=== PATIENT | female | born 1950 | race Caucasian/White ===

== ENCOUNTER 2018-11-06 02:27 | Inpatient (IN) | payer OTHER ==
--- NOTE | 2018-11-06 03:52 | PDOC ---
History of Present Illness - General Chief Complaint: Injury Stated Complaint: FALL Time Seen by Provider: 11/06/18 03:09 History Source: Patient Exam Limitations: No Limitations - History of Present Illness Initial Comments: 11/06/18 04:16 68 yo F with no past medical history presents to the emergency department s/p fall with LOC. It was difficult to arouse the patient as she kept falling back asleep. She was alert and oriented x1 to herself. She states she fell outside of [facility] after tripping on the items she was carrying. She endorses carrying her clothes and personal belongings (she is homeless). She endorses losing consciousness. Endorses pain in her chest, occipital head, neck, and bilateral pelvis. Denies the following: fever, chills, SOB, nausea, vomiting, abdominal pain, dysuria, hematuria, and diarrhea. Denies drug use and alcohol use. History limited given patient's inconsistency of answers and nodding off. Allergies: NKDA Past History - Past Medical History Allergies/Adverse Reactions: Allergies Allergy/AdvReac Type Severity Reaction Status Date / Time No Known Allergies Allergy Verified 11/06/18 03:56 Home Medications: Ambulatory Orders Insulin Sliding Scale [Novolog Vial Sliding Scale -] 1 vial SQ TIDAC units 04/29 Donepezil HCl [Aricept -] 5 mg PO DAILY tablet 11/13/18 Insulin (Levemir) [Levemir Vial] 10 units SQ AM units 11/13/18 - Suicide/Smoking/Psychosocial Hx Smoking History: Never smoked Have you smoked in the past 12 months: No Information on smoking cessation initiated: No Hx Alcohol Use: No Drug/Substance Use Hx: No Review of Systems - Review of Systems Able to Perform ROS?: No (AMS; not reliable ROS) *Physical Exam - Vital Signs Last Vital Signs Temp Pulse Resp BP Pulse Ox 98.0 F 90 18 153/91 99 11/06/18 02:37 11/06/18 02:37 11/06/18 02:37 11/06/18 02:37 11/06/18 02:37 - Physical Exam General Appearance: Yes: Nourished, Disheveled, Obese, Other (lethargic, but arousable). No: Appropriately Dressed HEENT: positive: EOMI, CHRISTOS, Pharynx Normal. negative: Normal Voice, Pale Conjunctivae, Scleral Icterus (R), Scleral Icterus (L), Pharyngeal Erythema, Tonsillar Exudate, Tonsillar Erythema, Nasal Congestion, Rhinorrhea Neck: positive: Trachea midline, Supple. negative: Tender, Lymphadenopathy (R) , Lymphadenopathy (L), Tender lateral, Tender midline Respiratory/Chest: positive: Lungs Clear, Normal Breath Sounds. negative: Chest Tender, Respiratory Distress, Accessory Muscle Use, Crackles, Rales, Rhonchi, Stridor, Wheezing Cardiovascular: positive: Regular Rhythm, Regular Rate, S1, S2. negative: Systolic Murmur Gastrointestinal/Abdominal: positive: Normal Bowel Sounds, Flat, Soft. negative : Tender Lymphatic: negative: Adenopathy Musculoskeletal: positive: Normal Inspection. negative: CVA Tenderness, Vertebral Tenderness Extremity: positive: Normal Capillary Refill, Normal Inspection, Normal Range of Motion. negative: Tender Integumentary: positive: Normal Color, Dry, Warm Neurologic: positive: Alert (minimally), Respond to painful stimul. 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 NML intact (unable to assess due to patient's lack of cooperativity) , Fully Oriented (unable to assess), Normal Mood/Affect ED Treatment Course - LABORATORY CBC & Chemistry Diagram: 11/06/18 03:51 11/07/18 06:00 - RADIOLOGY Radiology Studies Ordered: Category Date Time Status CERVICAL SPINE CT W/O CONTR [CT] Stat CT Scan 11/06/18 03:[address] W/O CONTRAST [CT] Stat CT Scan 11/06/18 03:[address] WITHOUT CONTRAST [CT] Stat CT Scan 11/06/18 03:48 Ordered CHEST X-RAY PORTABLE* [RAD] Stat Radiology 11/06/18 03:48 Ordered HIP & PELVIS-LEFT [RAD] Stat Radiology 11/06/18 03:48 Ordered HIP & PELVIS-RIGHT [RAD] Stat Radiology 11/06/18 03:48 Ordered Medical Decision Making - Medical Decision Making 68 yo F with no past medical history presents to the emergency department s/p fall with LOC. It was difficult to arouse the patient as she kept falling back asleep. Initial vitals: Initial Vital Signs Temp Pulse Resp BP Pulse Ox 98.0 F 90 18 153/91 99 11/06/18 02:37 11/06/18 02:37 11/06/18 02:37 11/06/18 02:37 11/06/18 02:37 Work up: ddx: AMS s/p fall. concerns for intracranial pathology. will also assess metabolic, hgn, infectious, and cardiac etiologies. Laboratory Tests 11/06/18 11/06/18 11/06/18 03:51 03:51 03:51 WBC 6.8 RBC 4.07 Hgb 13.2 Hct 38.0 MCV 93.3 MCH 32.3 MCHC 34.6 RDW 12.6 Plt Count 257 MPV 8.0 Absolute Neuts (auto) 4.5 Neutrophils % 66.1 Lymphocytes % 21.8 Monocytes % 7.9 Eosinophils % 3.4 Basophils % 0.8 Nucleated RBC % 0 PT with INR 12.10 INR 1.03 Sodium 142 Potassium 3.4 L Chloride 107 Carbon Dioxide 28 Anion Gap 7 L BUN 13.1 Creatinine 0.7 Est GFR (CKD-EPI)AfAm 101.74 Est GFR (CKD-EPI)NonAf 87.78 Random Glucose 220 H Calcium 8.9 Total Bilirubin 0.5 AST 26 ALT 27 Alkaline Phosphatase 140 H Troponin I Total Protein 7.1 Albumin 3.7 Urine Color Urine Appearance Urine pH Ur Specific Sarah Ann Urine Protein Urine Glucose (UA) Urine Ketones Urine Blood Urine Nitrite Urine Bilirubin Urine Urobilinogen Ur Leukocyte Esterase Opiates Screen Methadone Screen Barbiturate Screen Phencyclidine Screen Ur Amphetamines Screen MDMA (Ecstasy) Screen Benzodiazepines Screen Cocaine Screen U Marijuana (THC) Screen Alcohol, Quantitative < 3.0 Blood Type Antibody Screen 11/06/18 11/06/18 11/06/18 03:51 03:58 05:46 WBC RBC Hgb Hct MCV MCH MCHC RDW Plt Count MPV Absolute Neuts (auto) Neutrophils % Lymphocytes % Monocytes % Eosinophils % Basophils % Nucleated RBC % PT with INR INR Sodium Potassium Chloride Carbon Dioxide Anion Gap BUN Creatinine Est GFR (CKD-EPI)AfAm Est GFR (CKD-EPI)NonAf Random Glucose Calcium Total Bilirubin AST ALT Alkaline Phosphatase Troponin I < 0.02 Total Protein Albumin Urine Color Yellow Urine Appearance Clear Urine pH 6.0 Ur Specific Sarah Ann 1.034 Urine Protein Negative Urine Glucose (UA) 3+ H Urine Ketones Trace H Urine Blood Negative Urine Nitrite Negative Urine Bilirubin Negative Urine Urobilinogen 1.0 Ur Leukocyte Esterase Negative Opiates Screen Methadone Screen Barbiturate Screen Phencyclidine Screen Ur Amphetamines Screen MDMA (Ecstasy) Screen Benzodiazepines Screen Cocaine Screen U Marijuana (THC) Screen Alcohol, Quantitative Blood Type O POSITIVE Antibody Screen Negative 11/06/18 11/06/18 07:26 07:45 WBC RBC Hgb Hct MCV MCH MCHC RDW Plt Count MPV Absolute Neuts (auto) Neutrophils % Lymphocytes % Monocytes % Eosinophils % Basophils % Nucleated RBC % PT with INR INR Sodium Potassium Chloride Carbon Dioxide Anion Gap BUN Creatinine Est GFR (CKD-EPI)AfAm Est GFR (CKD-EPI)NonAf Random Glucose Calcium Total Bilirubin AST ALT Alkaline Phosphatase Troponin I Total Protein Albumin Urine Color Urine Appearance Urine pH Ur Specific Sarah Ann Urine Protein Urine Glucose (UA) Urine Ketones Urine Blood Urine Nitrite Urine Bilirubin Urine Urobilinogen Ur Leukocyte Esterase Opiates Screen Negative Methadone Screen Negative Barbiturate Screen Negative Phencyclidine Screen Negative Ur Amphetamines Screen Negative MDMA (Ecstasy) Screen Negative Benzodiazepines Screen Negative Cocaine Screen Negative U Marijuana (THC) Screen Negative Alcohol, Quantitative Blood Type O POSITIVE Antibody Screen potassium low. no tropinin elevation. alcohol <3.0. EKG shows NSR without ST elevation or depression without arrhythmia. 11/06/18 06:14 CT head: "There is mild increased density of the posterior interhemispheric fissure at the level of the occipital lobes, measures 2?3 millimeters and is suggestive of an acute subdural hematoma. 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 Will monitor at least for observation. No intervention at this time. Requests urine tox. Urine drug screen negative Signed out patient to day team, specifically Dr. Cardenas for impending admission. *DC/Admit/Observation/Transfer Diagnosis at time of Disposition: Altered mental status, unspecified - Referrals - Patient Instructions - Post Discharge Activity
[2018-11-06 04:05] LABS: BASO % 0.8 % (0-2.0); EOS % 3.4 % (0-4.5); HEMOGLOBIN 13.2 GM/dL (10.7-15.3); LYMPH % 21.8 % (8-40); MCH 32.3 pg (25.7-33.7); MCHC 34.6 g/dl (32.0-36.0); MEAN CELL VOLUME 93.3 fl (80-96); MONO % 7.9 % (3.8-10.2); NEUT % 66.1 % (42.8-82.8); PLATELET COUNT 257 K/MM3 (134-434); RBC 4.07 M/mm3 (3.60-5.2); RDW 12.6 % (11.6-15.6); WHITE BLOOD COUNT 6.8 K/mm3 (4.0-10.0)
[2018-11-06 04:18] LABS: INR 1.03 (0.83-1.09); PROTHROMBIN TIME (PATIENT) 12.1 SEC (9.7-13.0)
[2018-11-06 04:38] LABS: ALBUMIN 3.7 g/dl (3.4-5.0); ALK PHOS 140 U/L (45-117); ANION GAP 7 MMOL/L (8-16); BILIRUBIN,TOTAL 0.5 mg/dL (0.2-1); BLOOD UREA NITROGEN 13.1 mg/dL (7-18); CALCIUM 8.9 mg/dL (8.5-10.1); CHLORIDE 107 mmol/L (98-107); CO2 28 mmol/L (21-32); CREATININE 0.7 mg/dL (0.55-1.3); GLUCOSE,RANDOM 220 mg/dL (74-106); POTASSIUM 3.4 mmol/L (3.5-5.1); SGOT/AST 26 U/L (15-37); SGPT/ALT 27 U/L (13-61); SODIUM 142 mmol/L (136-145); TOT PROT 7.1 g/dl (6.4-8.2)
--- NOTE | 2018-11-06 05:15 | PDOC ---
Attending Attestation - Resident Resident Name: Bryan Lopez - ED Attending Attestation I have performed the following: I have examined & evaluated the patient, The case was reviewed & discussed with the resident, I agree w/resident's findings & plan - HPI HPI: 11/06/18 05:24 Pt comes in found on the ground. States that she is homeless; states that she has family members but she doesn't recall their phone #s. She is a poor historian. She has no other complaints. Head neck and facial bone CT will be obtained. - Physicial Exam PE: 11/06/18 05:25 Agree with resident exam - Medical Decision Making 11/06/18 05:25 Pt has poor hygeine, consistent with her homelessness. She has no abd pain and no flank pain. She is awake and arousable. She has no fever and no chills. She has no flank pain and no suprapubic pain. 11/06/18 06:05 Pt will require admission for 24 hrs for obs after syncope and found down on the ground. May require longer admission for suggested acute subdural. 11/06/18 06:10 Patient Name: DONNA ROLLINS THIS IS A PRELIMINARY REPORT FROM IMAGING EMERGENCY RESPONSE OFFICER DATE OF SERVICE: 2018-11-06 04:14:27 IMAGES: [id number] EXAM: CT HEAD WITHOUT CONTRAST HISTORY: Fall. COMPARISON: None. FINDINGS: 1. There is mild increased density of the posterior interhemispheric fissure at the level of the occipital lobes, measures 2?3 millimeters and is suggestive of an acute subdural hematoma. No significant mass effect. 2. No other evidence for intracranial bleed or depressed skull fracture. 3. Mild diffuse cerebral volume loss and age indeterminate lacunar infarct of the right posterior internal capsule. 4. Please see separate CT report of the facial bones of the same day. Patient Name: DONNA ROLLINS THIS IS A PRELIMINARY REPORT FROM [facility]AGING EMERGENCY RESPONSE OFFICER DATE OF SERVICE: 2018-11-06 04:08:32 IMAGES: [id number] EXAM: CT CERVICAL SPINE WITHOUT INTRAVENOUS CONTRAST. HISTORY: Fall. COMPARISON: None. FINDINGS: 1. No acute fracture or acute subluxation. Vertebral body heights and alignment are maintained. There is no significant prevertebral soft tissue thickening. 11/06/18 06:12 Patient Name: DONNA ROLLINS THIS IS A PRELIMINARY REPORT FROM [facility]AGING EMERGENCY RESPONSE OFFICER DATE OF SERVICE: 2018-11-06 04:18:07 IMAGES: [id number] EXAM: CT FACIAL BONES WITHOUT INTRAVENOUS CONTRAST. HISTORY: Fall. COMPARISON: None. FINDINGS: 1. There is an age-indeterminate mild fracture deformity of the left nasal bone , however may be chronic. Recommend clinical correlation. 2. Otherwise, no acute fracture or acute dislocation demonstrated. 3. The orbital domingo are intact. The orbital contents are preserved. No post- septal process seen. 4. The paranasal sinuses are well formed and aerated without fluid level. 5. Dental disease.
[2018-11-06] MEDS ORDERED: SODIUM CHLORIDE 0.9% 500 ML INFUS.BAG IV ONE (05:26)
--- NOTE | 2018-11-06 07:11 | PDOC ---
*Physical Exam - Vital Signs Last Vital Signs Temp Pulse Resp BP Pulse Ox 98.0 F 86 16 147/88 99 11/06/18 02:37 11/06/18 06:01 11/06/18 06:01 11/06/18 06:01 11/06/18 06:01 - Physical Exam Comments: MDM: *Reviewed vital signs, nursing notes, and prior visit documentation (if available). Received sign out from resident Dr. Lopez. In short, pt is a 68 f/o female found down by EMS. Presenting with AMS. [facility] Head CT revealed possible subdural hematoma. Neurosurgery, Dr. Gan, contacted via telephone. Requested UDS. Will evaluate today. Awaiting formal radiology report. Telephone discussion with resident Dr. Amaya. Verbally appraised of the pts HPI, ED course, and current plan of management. Will admit pt to med/surg for attending Dr. Oneal. Prateek Cardenas M.D., PGY2 Emergency Medicine Resident General Appearance: No: Apparent Distress Respiratory/Chest: negative: Respiratory Distress Neurologic: positive: Alert ED Treatment Course - LABORATORY CBC & Chemistry Diagram: 11/06/18 03:51 11/06/18 03:51 - ADDITIONAL ORDERS Additional order review: Laboratory Results 11/06/18 11/06/18 11/06/18 03:58 03:51 03:51 PT with INR 12.10 INR 1.03 Sodium Potassium Chloride Carbon Dioxide Anion Gap BUN Creatinine Est GFR (CKD-EPI)AfAm Est GFR (CKD-EPI)NonAf Random Glucose Calcium Total Bilirubin AST ALT Alkaline Phosphatase Troponin I < 0.02 Total Protein Albumin Alcohol, Quantitative Blood Type O POSITIVE Antibody Screen Negative 11/06/18 03:51 PT with INR INR Sodium 142 Potassium 3.4 L Chloride 107 Carbon Dioxide 28 Anion Gap 7 L BUN 13.1 Creatinine 0.7 Est GFR (CKD-EPI)AfAm 101.74 Est GFR (CKD-EPI)NonAf 87.78 Random Glucose 220 H Calcium 8.9 Total Bilirubin 0.5 AST 26 ALT 27 Alkaline Phosphatase 140 H Troponin I Total Protein 7.1 Albumin 3.7 Alcohol, Quantitative < 3.0 Blood Type Antibody Screen 11/06/18 03:51 RBC 4.07 MCV 93.3 MCHC 34.6 RDW 12.6 MPV 8.0 Neutrophils % 66.1 Lymphocytes % 21.8 Monocytes % 7.9 Eosinophils % 3.4 Basophils % 0.8 - Medications Given in the ED: ED Medications Discontinued Medications Generic Name Dose Route Start Last Admin Trade Name Freq PRN Reason Stop Dose Admin Sodium Chloride 1,000 ml 11/06/18 05:26 11/06/18 05:36 Normal Saline - IV 11/06/18 05:27 1,000 ml ONCE ONE Administration *DC/Admit/Observation/Transfer Diagnosis at time of Disposition: Altered mental status, unspecified Qualifiers: Altered mental status type: unspecified Qualified Code(s): R41.82 - Altered mental status, unspecified - Discharge Dispostion Condition at time of disposition: Stable Decision to Admit order: Yes - Referrals - Patient Instructions - Post Discharge Activity
[2018-11-06 07:35] LABS: URINE APPEARANCE CLEAR; URINE BILIRUBIN NEGATIVE (NEGATIVE); URINE COLOR YELLOW; URINE GLUCOSE (UA) 3+ (NEGATIVE); URINE KETONE TRACE (NEGATIVE); URINE LEUK ESTERASE NEGATIVE (NEGATIVE); URINE NITRITE NEGATIVE (NEGATIVE); URINE PROTEIN NEGATIVE (NEGATIVE)
--- NOTE | 2018-11-06 08:26 | PN ---
Progress Note (short form) - Note Progress Note: NEUROSURGERY Pt examined Chart reviewed CT reviewed No reported PMH. s/p fall with LOC. She states she fell outside of [facility] after tripping on the items she was carrying. c/o pain in her chest, occipital head, neck, and bilateral pelvis. Denies F/C, N/V, diplopia. Denies drug use and alcohol use. PE: AF, VSS HEENT- nasion abrasion; Neck- supple, mild basal tenderness; Cor- RR; Lungs- CTA B; Abd- benign, + BS; Ext- no sign of DVT Slightly sleepy, arousable, following commands CN- non-focal; Motor- at least 4/5 b UE/LE without drift; Sensation- intact LT; DTR- 1+ Head CT- hyperostosis interna, no fx, no acute bleed, posterior falx thickened/ calcified C spine CT- no fx, mild C5-6 DDD with spondylosis, no subluxation INR 1.03; glucose 220 No acute intracranial bleed s/p fall with concussion Check tox screen No neurosurgical issue/intervention Medical management accordingly
[2018-11-06 08:50] LABS: COCAINE, UR NEGATIVE ng/ml (CUTOFF=300); METHADONE, UR NEGATIVE ng/ml (CUTOFF=300); OPIATES, URI NEGATIVE ng/ml (CUTOFF=300); PHENCYCLIDINE,URINE NEGATIVE ng/ml (CUTOFF=25); URINE AMPHETAMINES NEGATIVE ng/ml (CUTOFF=500); URINE BARBITURATES NEGATIVE ng/ml (CUTOFF=200); URINE BENZODIAZEPINES NEGATIVE ng/ml (CUTOFF=200)
[2018-11-06] MEDS ORDERED: ENOXAPARIN NA (PORCINE) 40 MG/0.4 ML DISP.SYRIN SQ ONE (09:16)
[2018-11-06] MEDS: ENOXAPARIN NA (PORCINE) 40 MG/0.4 ML DISP.SYRIN SQ SCH (09:23)
[2018-11-06 10:59] VITALS: BMI 26.0
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
[2018-11-06] MEDS ORDERED: POTASSIUM CHLORIDE TABS 20 MEQ TABLET.ER (FP) PO ONE (16:30)
[2018-11-06] MEDS ORDERED: SODIUM CHLORIDE 1,000 ML IV SCH (16:45)
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
[2018-11-07 08:18] LABS: BLOOD UREA NITROGEN 8.1 mg/dL (7-18); CALCIUM 8.5 mg/dL (8.5-10.1); CREATININE 0.6 mg/dL (0.55-1.3); POTASSIUM 3.8 mmol/L (3.5-5.1)
--- NOTE | 2018-11-07 09:31 | EKG ---
Test Reason : Blood Pressure : / mmHG Vent. Rate : 074 BPM Atrial Rate : 074 BPM P-R Int : 164 ms QRS Dur : 082 ms QT Int : 404 ms P-R-T Axes : -11 023 025 degrees QTc Int : 448 ms NORMAL SINUS RHYTHM NORMAL ECG NO PREVIOUS ECGS AVAILABLE Confirmed by Swapnil Krause MD ([id number]) on 11/07/2018 9:30:43 AM Referred By: Confirmed By:wSapnil Krause MD
[2018-11-07] MEDS: ENOXAPARIN NA (PORCINE) 40 MG/0.4 ML DISP.SYRIN SQ SCH (09:41)
[2018-11-07] MEDS ORDERED: INSULIN (NOVOLOG) ASPART 100 UNITS/ML 10ML VIAL ONE (12:57)
--- NOTE | 2018-11-07 15:23 | CONSULT ---
Admitting History and Physical - Primary Care Physician PCP: Patricia Oneal - Admission History of Present Illness: 68 Citizen Of The [place]-speaking female w/ unknown pmhx presented to the ED after an unwitnessed fall. 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 She reports being homeless 5 months.She is verbal. Impaired recall, educated on staying in bed. Attempts to get OOB unattended, removes IV. Oriented to hospital not time. History Source: Medical Record Limitations to Obtaining History: Clinical Condition - Past Medical History ...: No - Smoking History Smoking history: Never smoked Have you smoked in the past 12 months: No - Alcohol/Substance Use Hx Alcohol Use: No History - Admission Reason For Visit: AMS - Diagnostics X-ray: Report Reviewed CT Scan: Report Reviewed - General Mental Status: Awake and Alert, Able to Follow Commands, Forgetful, Vague Attention: Intact Ability to Follow Directions: Good Head/Neck Control: WFL - Hearing Hearing: Normal Speech Evaluation - Communication Primary Language: FAROESE Secondary Language: LAO Communication: Yes: Within Normal Limits Oral Expression Ability: Yes: No Impairment - Speech Production Able to Make Needs Known: Yes: WNL Intelligibility: Yes: WNL - Speech Characteristics Voice Loudness: Normal Voice Pitch: Yes: Normal Voice Phonatory-based Quality: Yes: Normal Speech Pattern: Normal Speech Clarity: < 100% Nasal Resonance: Normal Articulation: Yes: Precise Rate of Speech: Intact - Language/Auditory Comprehension Follows: Yes: 1 Stage Simple Commands - Language/Verbal Expression Able to Respond to Simple Queries: Yes: WNL Able to Communicate Wants and Needs: Yes: WNL Functional Communication Status: Yes: WNL - Swallow Evaluation/Bedside Assessment Current Nutritional Intake: Regular, Thin Liquids Oral Secretions: Yes: WFL Dentition: Yes: Adequate Facial Symmetry at Rest: Symmetrical Facial Symmetry on Retraction: Symmetrical Facial Movement: Controlled Sensation: Normal Against Resistance Opening: Normal Against Resistance Closing: Normal Pucker Lips: Normal Lingual Movement: Normal, Deviates Right Lingual Speed of Movement: Normal Lingual Movement Strgth Against Opposition: Normal Lingual Movement Characteristics: Normal Laryngeal Elevation: WFL Laryngeal Movement: Able to Palpate Rate of Intake: WFL Bolus Size: WFL Labial Seal: WFL Chewing: WFL Oral Prep Time: WFL A-P Transit: WFL Pocketing: None Timing of Swallow: WFL Coughing/Throat Clear: No Change in Voice: No Recommendations - Speech Evaluation, Impression/Plan Impression: Verbal. Swallowing intact. Memory deficits? - Dysphagia Impressions/Plan Swallowing Skills: WF Dysphagia Impressions: No Impairment *Silent aspiration: cannot be R/O at bedside - Recommendations Diet Consistency: Regular Medication Administration: Whole with water Liquids: Thin Liquids
--- NOTE | 2018-11-07 15:38 | CON.NEURO ---
Consult - Past Medical History ...: No - Alcohol/Substance Use Hx Alcohol Use: No - Smoking History Smoking history: Never smoked Have you smoked in the past 12 months: No Home Medications - Allergies Allergies/Adverse Reactions: Allergies Allergy/AdvReac Type Severity Reaction Status Date / Time No Known Allergies Allergy Verified 11/06/18 03:56 - Home Medications Home Medications: Ambulatory Orders NK [No Known Home Medication] 11/06/18 Physical Exam-Neuro Vital Signs: Vital Signs Temperature 99.3 F 11/07/18 13:19 Pulse Rate 91 H 11/07/18 13:19 Respiratory Rate 18 11/07/18 13:19 Blood Pressure 127/72 11/07/18 13:19 O2 Sat by Pulse Oximetry (%) 97 11/07/18 09:00 Labs: CBC, BMP 11/06/18 03:51 11/07/18 06:00 INR, PTT INR 1.03 (0.83-1.09) 11/06/18 03:51 Assessment/Plan cc Confusion HPI 68 year old female , orginally from [facility] . 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 She has fall and been confused . She is homeless for five months. Patient has ct head is [facility]. She could not recall, where she lives. Patient have mild headhace. She denies any other focal neurological symptoms. Patient denies any fever or seizure like activity. PAST MEDICAL HISTORY: Unknown PAST SURGICAL HISTORY: Unknown Social History: Unable to obtain Family History: Unable to obtain. Allergies No Known Allergies Allergy (Verified 11/06/18 03:56) HOME MEDICATIONS: Home Medications Medication Instructions Recorded NK [No Known Home Medication] 11/06/18 SUMAYA BEASLEY reviewed in chart NEUROLOGICAL EXAMINATION Alert oriented x 1, knows she is at [facility], and could tell her name. neck supple, afebrile passed swallow test eomi, pupils reactive no face asymmetry moving all ext ct head is normal Assessment/Plan Confusional state, I suspect she suffers from Dementia and got worse due to recent hospitalization. Unlikley to be concussion injury. Given she has fallen, I suggest to repeat ct head for any subdural hematoma. Plan : repeat ct head b12,folate tsh - follow up outpatient no evidence of meningitis, stroke or status epilepticus Thanking you so much Zac Hendrickson MD
--- NOTE | 2018-11-07 16:10 | PN ---
Physical Exam: SUBJECTIVE: Patient seen and examined at the bedside. AOX1 today, mental status improved more alert today. OBJECTIVE: Vital Signs Period Temp Pulse Resp BP Sys/Garibay Pulse Ox Last 24 Hr 97.7 F-99.3 F 20-91 18-95 127-146/71-83 96-97 GENERAL: The patient is awake, slightly more alert, responsive., AO X1 HEAD: BRUISE over her nose and some hyperpigmentation on face. NECK: supple. LUNGS: Breath sounds equal, clear to auscultation bilaterally, no wheezes, no crackles, no accessory muscle use. HEART: Regular rate and rhythm, S1, S2 without murmur, rub or gallop. ABDOMEN: Soft, nontender, nondistended, no guarding, no rebound. EXTREMITIES: 2+ pulses, bruises on b/l LE's, warm, well-perfused, no edema. PSYCH: difficult to assess awaiting psych eval SKIN: Warm, dry, senile lentigo on her hands b/l, hyperpigmentation on her face and eczematous rash on her abdomen. Laboratory Results - last 24 hr 11/06/18 11/07/18 11/07/18 20:46 05:34 06:00 Sodium 140 Potassium 3.8 Chloride 107 Carbon Dioxide 26 Anion Gap 7 L BUN 8.1 Creatinine 0.6 Est GFR (CKD-EPI)AfAm 107.03 Est GFR (CKD-EPI)NonAf 92.35 POC Glucometer 238 184 Random Glucose 167 H Calcium 8.5 11/07/18 11/07/18 08:46 12:52 Sodium Potassium Chloride Carbon Dioxide Anion Gap BUN Creatinine Est GFR (CKD-EPI)AfAm Est GFR (CKD-EPI)NonAf POC Glucometer 190 224 Random Glucose Calcium Active Medications Generic Name Dose Route Start Last Admin Trade Name Freq PRN Reason Stop Dose Admin Enoxaparin Sodium 40 mg 11/06/18 10:00 11/07/18 09:41 Lovenox - SQ 40 mg DAILY EL Administration Sodium Chloride 1,000 mls @ 75 mls/hr 11/06/18 16:45 11/06/18 18:44 Normal Saline - IV 75 mls/hr ASDIR EL Administration ASSESSMENT/PLAN: IMAGING: * Head CT: neg * Cervical spine CT: No acute fx, compression deformity, subluxation. C5-C6 loss of of disc space height. Mild anterior spondylosis. * CT facial bones: Chronic L nasal fx. No evid of acute fx, opacification of the paranasal sinuses, mastoid air cells or middle ear. * R hip xray: No acute pathology. 68 y/o Serbian-speaking female w/ DM, HTN pmhx who presented to the ED after an unwitnessed fall. #Unwitnessed Mechanical Fall PT eval shows she can ambulate with assistance around 200 ft. #? Concussion -Head CT neg - Neuro consult (Dr. Crystal): pt is in a confusional state, doubts concussion , thinks she suffers from dementia but worsened during this admission. Repeat CT scan to r/o a subdural hematoma and do B12, TSH, Folate to w/u the dementia. - Psych consulted- spoke to Dr. Lopez, he will see him tn #Hypokalemia -replete PRN #Prophylaxis -Lovenox 40SQ #FEN -PO hydration -recheck lytes in AM -Sodium-controlled diet Dispo: pending Psych eval will have safe d/c home tm. Visit type - Emergency Visit Emergency Visit: Yes ED Registration Date: 11/06/18 Care time: The patient presented to the Emergency Department on the above date and was hospitalized for further evaluation of their emergent condition. - New Patient This patient is new to me today: No - Critical Care Critical Care patient: No - Discharge Referral Referred to [facility] Med [facility] No ATTENDING PHYSICIAN STATEMENT I saw and evaluated the patient. I reviewed the resident's note and discussed the case with the resident. I agree with the resident's findings and plan as documented. SUBJECTIVE: OBJECTIVE: ASSESSMENT AND PLAN:
--- NOTE | 2018-11-07 17:28 | ECHO ---
Name: KULDEEP ROLLINS Exam:Adult Echocardiogram Study Date: 11/07/2018 01:32 PM Age: 68 yrs Reason For Study: SYNCOPE Height: 60 in Weight: 133 lb BSA: 1.6 m2 Left Ventricle Mild LVH with normal LV Function. The estimated EF is 55%. Abnormal diastolic relaxation. Right Ventricle The right ventricle is normal in size and function. Atria Normal left and right atrial size and function. Mitral Valve The mitral valve is grossly normal. There is mild mitral regurgitation. Aortic Valve The aortic valve is normal in structure and function. Pulmonic Valve The pulmonic valve is not well seen, but is grossly normal. Great Vessels The aortic root is not well visualized. Pericardium/Pleura There is no pericardial effusion. Interpretation Summary Mild LVH with normal LV Function. The estimated EF is 55%. Abnormal diastolic relaxation. The right ventricle is normal in size and function. Normal left and right atrial size and function. There is mild mitral regurgitation. The aortic valve is normal in structure and function. MD Lito Jacobs 11/07/2018 05:28 PM
--- NOTE | 2018-11-07 18:22 | PN ---
Teaching Attending Note Name of Resident: Michael Bone ATTENDING PHYSICIAN STATEMENT I saw and evaluated the patient. I reviewed the resident's note and discussed the case with the resident. I agree with the resident's findings and plan as documented. SUBJECTIVE: Denies any pain, or SOB. feels better today. she confirms she had diabetes and HTN. still can give limited hx OBJECTIVE: NAD. awake, mostly cooperative with exam. EOMI, no facial droop. HEENT: MMM. CV: RRR, no MRG lungs: CTAB Abd: soft, NT, ND , NL BS. Ext : No edema or erythema. Neuro: did not cooperate ASSESSMENT AND PLAN: 68 y/o lady with unknown PMH who presented after a fall. 1- Mechanical fall. 2- Possible dementia. 3- HTN 4- dementia plan: - appreciate Dr. Hendrickson help.possible dementia - consut psyh - start SSI - monitor BP . - repeat CT of head - PT eval - can't reach any family d/w Administration. Will decide about best dispo plan for her
--- NOTE | 2018-11-07 19:11 | CON.PSY ---
Psychiatry Consult Chief Complaint: 68 Joselyn old female seen for Psych eval. Hasw been confused and homeless for t5he past 6 months. staff report that she is verry fortgetful and has defficulty following any instructions. Symptoms: reports: Impaired Concentration, Memory Impairment, Anxiety - Previous Psychiatric Treatment Outpatient: None Inpatient: None - Previous Substance Abuse Treatment Outpatient: None Inpatient: None - Current Medications Current Medications: Active Medications Enoxaparin Sodium (Lovenox -) [address] [facility] Last Admin: 11/07/18 09:41 Dose: 40 mg Insulin Aspart (Novolog Vial Sliding Scale -) [address] [facility]; Protocol - Allergies Allergies: Allergies Allergy/AdvReac Type Severity Reaction Status Date / Time No Known Allergies Allergy Verified 11/06/18 03:56 - Current Living Status Usual Living Arrangement: Alone - Current Mental Status Evaluation Appearance: Disheveled Attitude: Guarded - Affect Affect: Constrictive - Mood Mood: Anxious - Speech/Language Expressive: Delayed - Psychomotor Activity Psychomotor Activity: Slowed - Thought Process Thought Process: Circumstantial - Thought Content Hallucinations: Absent Delusions: Absent - Self Perception Self Perception: No Impairment - Cognition Attention: Alert Memory, Short Term: 1/3 Memory, Remote with Promptin/3 - Concentration Serial Sevens Intact: No Simple Calculations Intact: No - Abstraction Proverb Interpretation: Impaired Judgement: Moderately Impaired - Insight Insight: Impaired - Impulse Control Impulse Control: Minimally Impaired - Suicidal Ideation Suicidal Ideation: No - Homicidal Ideation Homicidal Ideation: No Assessment/Plan 1) Patient lacks functional capacity to make any decisions at this time.
--- NOTE | 2018-11-07 22:08 | PN ---
Progress Note (short form) - Note Progress Note: NEUROSURGERY Seen earlier this am Denies H/A, N/V, diplopia. Denies drug use and alcohol use. PE: AF, VSS HEENT- nasion abrasion; Neck- supple, mild basal tenderness; Cor- RR; Lungs- CTA B; Abd- benign, + BS; Ext- no sign of DVT Awake, alert, following commands CN- non-focal; Motor- at least 4/5 b UE/LE without drift; Sensation- intact LT; DTR- 1+ tx screen negative Head CT- hyperostosis interna, no fx, no acute bleed, posterior falx thickened/ calcified C spine CT- no fx, mild C5-6 DDD with spondylosis, no subluxation No acute intracranial bleed s/p fall with concussion Check tox screen No neurosurgical intervention indicated
[2018-11-08] MEDS ORDERED: INSULIN (NOVOLOG) ASPART 100 UNITS/ML 10ML VIAL ONE ×3 (06:58→16:20)
[2018-11-08] MEDS: INSULIN SLIDING SCALE (NOVOLOG) 1 VIAL SQ SCH ×3 (07:00→16:22)
[2018-11-08] MEDS: ENOXAPARIN NA (PORCINE) 40 MG/0.4 ML DISP.SYRIN SQ SCH (11:17)
--- NOTE | 2018-11-08 12:50 | PN ---
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 Pt lacks capacity per Psychiatry.
--- NOTE | 2018-11-08 14:46 | PN ---
Teaching Attending Note Name of Resident: Michael Bone ATTENDING PHYSICIAN STATEMENT I saw and evaluated the patient. I reviewed the resident's note and discussed the case with the resident. I agree with the resident's findings and plan as documented. SUBJECTIVE: Patient has no new complains, oriented x1 for the place , disoriented x2 OBJECTIVE: Vital Signs Temperature 98.7 F 11/08/18 13:25 Pulse Rate 91 H 11/08/18 13:25 Respiratory Rate 18 11/08/18 13:25 Blood Pressure 128/72 11/08/18 13:25 O2 Sat by Pulse Oximetry (%) 97 11/07/18 09:00 GENERAL: The patient is awake, alert, and fully oriented, in no acute distress. HEAD: Normal with no signs of trauma. EYES: PERRL, extraocular movements intact, sclera anicteric, conjunctiva clear. ENT: Ears normal, oropharynx clear without exudates, moist mucous membranes. NECK: Trachea midline, full range of motion, supple. LUNGS: Breath sounds equal, clear to auscultation bilaterally, no wheezes, no crackles, no accessory muscle use. HEART: Regular rate and rhythm, S1, S2 without murmur, rub or gallop. ABDOMEN: Soft, nontender, nondistended, normoactive bowel sounds, no guarding, no rebound, no hepatosplenomegaly, no masses. EXTREMITIES: 2+ pulses, warm, well-perfused, no edema. NEUROLOGICAL: Cranial nerves II through XII grossly intact. Normal speech, gait not observed. PSYCH: Normal mood, normal affect. SKIN: Warm, dry, normal turgor, no rashes or lesions noted CBCD WBC 6.8 K/mm3 (4.0-10.0) 11/06/18 03:51 RBC 4.07 M/mm3 (3.60-5.2) 11/06/18 03:51 Hgb 13.2 GM/dL (10.7-15.3) 11/06/18 03:51 Hct 38.0 % (32.4-45.2) 11/06/18 03:51 MCV 93.3 fl (80-96) 11/06/18 03:51 MCHC 34.6 g/dl (32.0-36.0) 11/06/18 03:51 RDW 12.6 % (11.6-15.6) 11/06/18 03:51 Plt Count 257 K/MM3 (134-434) 11/06/18 03:51 MPV 8.0 fl (7.5-11.1) 11/06/18 03:51 CMP Sodium 140 mmol/L (136-145) 11/07/18 06:00 Potassium 3.8 mmol/L (3.5-5.1) 11/07/18 06:00 Chloride 107 mmol/L (98-107) 11/07/18 06:00 Carbon Dioxide 26 mmol/L (21-32) 11/07/18 06:00 Anion Gap 7 MMOL/L (8-16) L 11/07/18 06:00 BUN 8.1 mg/dL (7-18) 11/07/18 06:00 Creatinine 0.6 mg/dL (0.55-1.3) 11/07/18 06:00 Random Glucose 167 mg/dL (74-106) H 11/07/18 06:00 Calcium 8.5 mg/dL (8.5-10.1) 11/07/18 06:00 Total Bilirubin 0.5 mg/dL (0.2-1) 11/06/18 03:51 AST 26 U/L (15-37) 11/06/18 03:51 ALT 27 U/L (13-61) 11/06/18 03:51 Alkaline Phosphatase 140 U/L (45-117) H 11/06/18 03:51 Total Protein 7.1 g/dl (6.4-8.2) 11/06/18 03:51 Albumin 3.7 g/dl (3.4-5.0) 11/06/18 03:51 CARDIAC ENZYMES Troponin I < 0.02 ng/ml (0.00-0.05) 11/06/18 03:51 Current Medications Generic Name Dose Route Start Last Admin Trade Name Freq PRN Reason Stop Dose Admin Enoxaparin Sodium 40 mg 11/06/18 10:00 11/08/18 11:17 Lovenox - SQ 40 mg DAILY EL Administration Insulin Aspart 1 vial 11/08/18 07:00 11/08/18 11:17 Novolog Vial Sliding Scale - SQ 4 units TIDAC EL Administration Protocol Home Medications Medication Instructions Recorded NK [No Known Home Medication] 11/06/[address]- hyperostosis interna, no fx, no acute bleed, posterior falx thickened/ calcified, No acute intracranial bleed C spine CT- no fx, mild C5-6 DDD with spondylosis, no subluxation ASSESSMENT AND PLAN: Patient is a 68 y/o female with unknown PMHx who presented after a fall. # s/p Mechanical fall. s/p fall with concussion # moderate dementia. on the case # HTN : monitor BP . - PT eval - can't reach any family will check with Administration. Will decide about best dispo plan for her
--- NOTE | 2018-11-08 15:57 | PN ---
Physical Exam: SUBJECTIVE: Patient seen and examined at the bedside today. No acute events overnight. OBJECTIVE: Vital Signs Period Temp Pulse Resp BP Sys/Garibay Pulse Ox Last 24 Hr 98.4 F-99.4 F 82-91 18-19 128-142/71-73 95 GENERAL: The patient is awake, mental status improved since yesterday but memory impairment still present. HEAD: Normal with no signs of trauma. NECK: supple. LUNGS: Breath sounds equal, clear to auscultation bilaterally, no wheezes, no crackles, no accessory muscle use. HEART: Regular rate and rhythm, S1, S2 without murmur, rub or gallop. ABDOMEN: Soft, nontender, nondistended, no guarding, no rebound, no masses, eczema rash on midepigastrium. EXTREMITIES: warm, well-perfused, no edema. PSYCH: poor quality of judgement. SKIN: Warm, dry, b/l knee bruises. Laboratory Results - last 24 hr 11/07/18 11/07/18 11/08/18 06:00 17:12 05:51 POC Glucometer 196 203 Hemoglobin A1c % Vitamin B12 285 Serum Folate 16 TSH 11/08/18 11/08/18 11/08/18 06:25 06:25 10:33 POC Glucometer 240 Hemoglobin A1c % 9.8 H Vitamin B12 Serum Folate TSH 2.78 Active Medications Generic Name Dose Route Start Last Admin Trade Name Freq PRN Reason Stop Dose Admin Enoxaparin Sodium 40 mg 11/06/18 10:00 11/08/18 11:17 Lovenox - SQ 40 mg DAILY EL Administration Insulin Aspart 1 vial 11/08/18 07:00 11/08/18 11:17 Novolog Vial Sliding Scale - SQ 4 units TIDAC EL Administration Protocol ASSESSMENT/PLAN: IMAGING: * Head CT: neg * Cervical spine CT: No acute fx, compression deformity, subluxation. C5-C6 loss of of disc space height. Mild anterior spondylosis. * CT facial bones: Chronic L nasal fx. No evid of acute fx, opacification of the paranasal sinuses, mastoid air cells or middle ear. * R hip xray: No acute pathology. 68 y/o Tajik-speaking female w/ DM, HTN pmhx who presented to the ED after an unwitnessed fall. #Unwitnessed Mechanical Fall PT eval shows she can ambulate with assistance around 200 ft. #? Concussion -Head CT neg - Neuro consult (Dr. Crystal): pt is in a confusional state, doubts concussion , thinks she suffers from dementia but worsened during this admission. Repeat CT scan to r/o a subdural hematoma and B12 pending: TSH- 2.78, - Folate pending: - Psych consulted: pt does not have the full mental capacity to make decisions for herself at this time. #Hypokalemia -replete PRN #Prophylaxis -Lovenox 40SQ #FEN -PO hydration -recheck lytes in AM -Sodium-controlled diet Dispo: will d/c once patients mental status improves. Visit type - Emergency Visit Emergency Visit: No - New Patient This patient is new to me today: No - Critical Care Critical Care patient: No - Discharge Referral Referred to [facility] Med P.C.: No ATTENDING PHYSICIAN STATEMENT I saw and evaluated the patient. I reviewed the resident's note and discussed the case with the resident. I agree with the resident's findings and plan as documented. SUBJECTIVE: OBJECTIVE: ASSESSMENT AND PLAN:
[2018-11-09] MEDS: INSULIN SLIDING SCALE (NOVOLOG) 1 VIAL SQ SCH ×3 (06:20→17:25)
[2018-11-09] MEDS ORDERED: INSULIN (NOVOLOG) ASPART 100 UNITS/ML 10ML VIAL ONE (06:28)
[2018-11-09] MEDS: ENOXAPARIN NA (PORCINE) 40 MG/0.4 ML DISP.SYRIN SQ SCH (09:26)
[2018-11-09] MEDS ORDERED: INSULIN (LEVEMIR) 100 UNITS/ML UNITS SQ ONE (11:55)
--- NOTE | 2018-11-09 13:33 | DS ---
Physical Exam: SUBJECTIVE: Patient seen and examined. No acute events pt ambulating fine states she would like to go to rehab. OBJECTIVE: Vital Signs Period Temp Pulse Resp BP Sys/Garibay Pulse Ox Last 24 Hr 97.6 F-98.6 F 78-85 18-20 131-151/69-81 95 PHYSICAL EXAM GENERAL: The patient is awake, alert, and fully oriented, in no acute distress. HEAD: mild bruising from falls, hyperpigmented skin. EYES: PERRL, extraocular movements intact, sclera anicteric, conjunctiva clear. ENT: Ears normal, nares patent, oropharynx clear without exudates, moist mucous membranes. NECK: Trachea midline, full range of motion, supple. LUNGS: Breath sounds equal, clear to auscultation bilaterally, no wheezes, no crackles, no accessory muscle use. HEART: Regular rate and rhythm, S1, S2 without murmur, rub or gallop. ABDOMEN: Soft, nontender, nondistended, no guarding, no rebound. EXTREMITIES: warm, well-perfused, no edema. SKIN: Warm, dry, normal turgor, hyperpigmented skin. LABS Laboratory Results - last 24 hr 11/08/18 11/09/18 11/09/18 16:19 05:51 11:41 POC Glucometer 242 202 258 HOSPITAL COURSE: Date of Admission:11/06/18 Pt is a 68 y/o homeless japanese speaking F with PMH of dementia, who was admitted for a syncopal event. Pt was monitored on tele initially for any arrythmias and echo was performed which did not show any abnormalities. Pt has underlying hx of dementia and she was evaluated by neurology (Dr. Darling) and placed on aricept. Furthermore, she was dx with T2DM here, which we are treating with sliding scale and levemir 15 units. Pt is now stable and d/c to [facility] to better monitor her and make sure pt is taking her medications as prescribed. Date of Discharge: 11/09/18 Minutes to complete discharge: 35 Discharge Summary Reason For Visit: AMS Condition: Improved - Instructions Diet, Activity, Other Instructions: - You were admitted for fainting and falling. While you were here we monitored your heart for any abnormal heart beats and it was found to be normal. We did some imaging of your heart (echo) and of your neck artery (carotid doppler) and they were found to be normal as well. - We had psychiatry (Dr. Ren) and neurology (Dr. Hendrickson) evaluate your memory and mental status. They feel it would be best for you to be in a prison, given that you have difficult remembering information. Medications -Please START taking Aricept 5 mg once a day by mouth. -Please START taking Levemir (long-acting insulin) 10U in the morning. Additionally, you will be placed on an insulin sliding scale. It is important that you taking your insulin regularly and to have your blood sugar levels checked in the morning and before each meal. -Please use the following Novolog insulin sliding scale: Blood sugar level 101-150 0 Units 151-200 2 Units 201-250 4 Units 251-300 6 Units 301-350 8 Units 351-400 10 Units >400 12 Units Follow Up: You should follow up with your primary care doctor in 1 week. You should follow up with your neurologist, Dr. Hendrickson within 1 week for outpatient neurologic evaluation. You should follow up with your psychiatrist, Dr. White, within 1 week. You should follow up with an eye doctor, Dr. Lund for evaluation of your visual problems. You should return to the emergency room if you have any worsening of your current symptoms or: chest pain, shortness of breath, dizziness, or fevers. Good luck! Referrals: Zac Hendrickson MD [Staff Physician] - 1 Week Jeremias Diana MD [Staff Physician] - 1 Week Carlotta White MD [Staff Physician] - 1 Week Swapnil Lund MD [Staff Physician] - 1 Week Michael Bone RES [Resident] - 1 Week Disposition: RETIREMENT FACILITY - Home Medications Comprehensive Discharge Medication List: Ambulatory Orders Enoxaparin [Lovenox -] 40 mg SQ DAILY disp.syrin 11/09/18 Insulin (Levemir) [Levemir Vial] 10 units SQ AM #0 units 11/09/18 Insulin Sliding Scale [Novolog Vial Sliding Scale -] 1 vial SQ TIDAC units 04/29 This patient is new to me today: No Emergency Visit: Yes ED Registration Date: 11/06/18 Care time: The patient presented to the Emergency Department on the above date and was hospitalized for further evaluation of their emergent condition. Critical Care patient: No - Discharge Referral Referred to [facility] Med P.C.: No ATTENDING PHYSICIAN STATEMENT I saw and evaluated the patient. I reviewed the resident's note and discussed the case with the resident. I agree with the resident's findings and plan as documented. SUBJECTIVE: OBJECTIVE: ASSESSMENT AND PLAN:
--- NOTE | 2018-11-09 15:22 | PN ---
Progress Note (short form) - Note Progress Note: 68 year old female , orginally from [facility] . 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 She has fall and been confused . She is homeless for five months. Patient has ct head is noraml. She could not recall, where she lives. Patient have mild headhace. She denies any other focal neurological symptoms. Patient denies any fever or seizure like activity. NEUROLOGICAL EXAMINATION Alert oriented x 1, knows she is at [facility], and could tell her name. neck supple, afebrile passed swallow test eomi, pupils reactive no face asymmetry moving all ext ct head is normal b12,folate tsh is pending Assessment/Plan Confusional state, I suspect she suffers from Dementia and got worse due to recent hospitalization. Unlikley to be concussion injury. Plan : - follow up outpatient no evidence of meningitis, stroke or status epilepticus Thanking you so much Zac Hendrickson MD
--- NOTE | 2018-11-09 16:04 | PN ---
Teaching Attending Note Name of Resident: Michael Bone ATTENDING PHYSICIAN STATEMENT I saw and evaluated the patient. I reviewed the resident's note and discussed the case with the resident. I agree with the resident's findings and plan as documented. SUBJECTIVE: Patient is comfortable with no acute distress. improved. OBJECTIVE: Vital Signs Temperature 98.6 F 11/09/18 10:00 Pulse Rate 84 11/09/18 10:00 Respiratory Rate 20 11/09/18 10:00 Blood Pressure 140/69 11/09/18 10:00 O2 Sat by Pulse Oximetry (%) 95 11/08/18 22:00 GENERAL: The patient is awake, alert, and fully oriented, in no acute distress. HEAD: Normal with no signs of trauma. EYES: PERRL, extraocular movements intact, sclera anicteric, conjunctiva clear. ENT: Ears normal, oropharynx clear without exudates, moist mucous membranes. NECK: Trachea midline, full range of motion, supple. LUNGS: Breath sounds equal, clear to auscultation bilaterally, no wheezes, no crackles, no accessory muscle use. HEART: Regular rate and rhythm, S1, S2 without murmur, rub or gallop. ABDOMEN: Soft, nontender, nondistended, normoactive bowel sounds, no guarding, no rebound, no hepatosplenomegaly, no masses. EXTREMITIES: 2+ pulses, warm, well-perfused, no edema. NEUROLOGICAL: Cranial nerves II through XII grossly intact. Normal speech, gait not observed. PSYCH: Normal mood, normal affect. SKIN: Warm, dry, normal turgor, no rashes or lesions noted CBCD WBC 6.8 K/mm3 (4.0-10.0) 11/06/18 03:51 RBC 4.07 M/mm3 (3.60-5.2) 11/06/18 03:51 Hgb 13.2 GM/dL (10.7-15.3) 11/06/18 03:51 Hct 38.0 % (32.4-45.2) 11/06/18 03:51 MCV 93.3 fl (80-96) 11/06/18 03:51 MCHC 34.6 g/dl (32.0-36.0) 11/06/18 03:51 RDW 12.6 % (11.6-15.6) 11/06/18 03:51 Plt Count 257 K/MM3 (134-434) 11/06/18 03:51 MPV 8.0 fl (7.5-11.1) 11/06/18 03:51 CMP Sodium 140 mmol/L (136-145) 11/07/18 06:00 Potassium 3.8 mmol/L (3.5-5.1) 11/07/18 06:00 Chloride 107 mmol/L (98-107) 11/07/18 06:00 Carbon Dioxide 26 mmol/L (21-32) 11/07/18 06:00 Anion Gap 7 MMOL/L (8-16) L 11/07/18 06:00 BUN 8.1 mg/dL (7-18) 11/07/18 06:00 Creatinine 0.6 mg/dL (0.55-1.3) 11/07/18 06:00 Random Glucose 167 mg/dL (74-106) H 11/07/18 06:00 Calcium 8.5 mg/dL (8.5-10.1) 11/07/18 06:00 Total Bilirubin 0.5 mg/dL (0.2-1) 11/06/18 03:51 AST 26 U/L (15-37) 11/06/18 03:51 ALT 27 U/L (13-61) 11/06/18 03:51 Alkaline Phosphatase 140 U/L (45-117) H 11/06/18 03:51 Total Protein 7.1 g/dl (6.4-8.2) 11/06/18 03:51 Albumin 3.7 g/dl (3.4-5.0) 11/06/18 03:51 CARDIAC ENZYMES Troponin I < 0.02 ng/ml (0.00-0.05) 11/06/18 03:51 Current Medications Generic Name Dose Route Start Last Admin Trade Name Freq PRN Reason Stop Dose Admin Enoxaparin Sodium 40 mg 11/06/18 10:00 11/09/18 09:26 Lovenox - SQ 40 mg DAILY [facility] Administration Insulin Aspart 1 vial 11/08/18 07:00 11/09/18 11:52 Novolog Vial Sliding Scale - SQ 6 units TIDAC [facility] Administration Protocol Insulin Detemir 10 units 11/10/18 07:00 Levemir Vial SQ AM [facility] Home Medications Medication Instructions Recorded Enoxaparin [Lovenox -] 40 mg SQ DAILY disp.syrin 11/09/18 Insulin (Levemir) [Levemir Vial] 10 units SQ AM #0 units 11/09/18 Insulin Sliding Scale [Novolog 1 vial SQ TIDAC units 11/09/18 Vial Sliding Scale -] Head CT- hyperostosis interna, no fx, no acute bleed, posterior falx thickened/ calcified, No acute intracranial bleed C spine CT- no fx, mild C5-6 DDD with spondylosis, no subluxation ASSESSMENT AND PLAN: Patient is a 68 y/o female with unknown PMHx who presented after a fall. # s/p Mechanical fall with concussion , paTIENT improved. discharging to rehab.accepted to [facility]. # moderate dementia. neuro seen the patient # HTN : continue to monitor.
--- NOTE | 2018-11-09 16:16 | PN ---
Physical Exam: SUBJECTIVE: Patient seen and examined at bedside. Memory slightly improving, no acute events overnight. OBJECTIVE: Vital Signs Period Temp Pulse Resp BP Sys/Garibay Pulse Ox Last 24 Hr 97.6 F-98.6 F 78-85 18-20 131-151/69-81 95 GENERAL: The patient is awake, alert to a degree, does not know date. HEAD: signs of bruising from falls, lac above nose. EYES: vision abnormality in right eye and possibly left, pt not very compliant to perform an optimal eye exam, sclera anicteric, No ptosis. ENT: Ears normal, nares patent, oropharynx clear without exudates, moist mucous membranes. NECK: supple. LUNGS: Breath sounds equal, clear to auscultation bilaterally, no wheezes, no crackles, no accessory muscle use. HEART: Regular rate and rhythm, S1, S2 without murmur, rub or gallop. ABDOMEN: Soft, nontender, nondistended, normoactive bowel sounds, no guarding, no rebound. EXTREMITIES: warm, well-perfused, no edema. NEUROLOGICAL: Normal speech, gait not observed. PSYCH: Normal mood, normal affect. SKIN: Warm, dry, no rashes or lesions noted Laboratory Results - last 24 hr 11/08/18 11/09/18 11/09/18 16:19 05:51 11:41 POC Glucometer 242 202 258 Active Medications Generic Name Dose Route Start Last Admin Trade Name Freq PRN Reason Stop Dose Admin Enoxaparin Sodium 40 mg 11/06/18 10:00 11/09/18 09:26 Lovenox - SQ 40 mg DAILY [facility] Administration Insulin Aspart 1 vial 11/08/18 07:00 11/09/18 11:52 Novolog Vial Sliding Scale - SQ 6 units TIDAC [facility] Administration Protocol Insulin Detemir 10 units 11/10/18 07:00 Levemir Vial SQ AM EL ASSESSMENT/PLAN: IMAGING: * Head CT: neg * Cervical spine CT: No acute fx, compression deformity, subluxation. C5-C6 loss of of disc space height. Mild anterior spondylosis. * CT facial bones: Chronic L nasal fx. No evid of acute fx, opacification of the paranasal sinuses, mastoid air cells or middle ear. * R hip xray: No acute pathology. 68 y/o Slovenian-speaking female w/ DM, HTN pmhx who presented to the ED after an unwitnessed fall. #Unwitnessed Mechanical Fall Pt has vision issues as per her brother. This is why she has an extensive fall hx. - Optho ( Dr. Alfaro) consulted appreciate recs. #? Concussion -Head CT neg - Neuro consult (Dr. Crystal): pt is in a confusional state, doubts concussion , thinks she suffers from dementia but worsened during this admission. Repeat CT scan to r/o a subdural hematoma and B12 pending TSH- 2.78, - Folate pending - Psych consulted: pt does not have the full mental capacity to make decisions for herself at this time. #Hypokalemia -wnl #Prophylaxis -Lovenox 40SQ #FEN -PO hydration -recheck lytes in AM -Sodium-controlled diet Dispo: will d/c once she can be placed in a [facility]. Visit type - Emergency Visit Emergency Visit: No - New Patient This patient is new to me today: No - Critical Care Critical Care patient: No - Discharge Referral Referred to [facility] Med P.C.: No ATTENDING PHYSICIAN STATEMENT I saw and evaluated the patient. I reviewed the resident's note and discussed the case with the resident. I agree with the resident's findings and plan as documented. SUBJECTIVE: OBJECTIVE: ASSESSMENT AND PLAN:
[2018-11-10] MEDS: INSULIN SLIDING SCALE (NOVOLOG) 1 VIAL SQ SCH ×3 (06:11→16:45)
[2018-11-10] MEDS: INSULIN (LEVEMIR) 100 UNITS/ML UNITS SQ SCH (06:12)
[2018-11-10] MEDS: ENOXAPARIN NA (PORCINE) 40 MG/0.4 ML DISP.SYRIN SQ SCH (09:47)
[2018-11-10] MEDS ORDERED: ACETAMINOPHEN 325 MG TABLET (FP) PO ONE (11:30)
--- NOTE | 2018-11-10 15:49 | PN ---
Physical Exam: SUBJECTIVE: Patient seen and examined at the bedside. No acute events overnight. OBJECTIVE: Vital Signs Period Temp Pulse Resp BP Sys/Garibay Pulse Ox Last 24 Hr 97.7 F-98.9 F 60-90 20-20 115-146/58-72 96-98 GENERAL: The patient is awake, alert, and fully oriented, in no acute distress. HEAD: some hyperpigmentation. NECK: supple. LUNGS: Breath sounds equal, clear to auscultation bilaterally, no wheezes, no crackles, no accessory muscle use. HEART: Regular rate and rhythm, S1, S2 without murmur, rub or gallop. ABDOMEN: Soft, nontender, nondistended, no guarding, no rebound. EXTREMITIES: warm, well-perfused, no edema. NEUROLOGICAL: Normal speech, gait not observed. PSYCH: impaired memory, impaired response to simple tasks, impaired judgement at this time. SKIN: Warm, dry, hyperpigmented areas, laceration above nose. Laboratory Results - last 24 hr 11/09/18 11/10/18 11/10/18 17:22 05:48 11:05 POC Glucometer 225 190 225 Active Medications Generic Name Dose Route Start Last Admin Trade Name Freq PRN Reason Stop Dose Admin Enoxaparin Sodium 40 mg 11/06/18 10:00 11/10/18 09:47 Lovenox - SQ 40 mg DAILY [facility] Administration Insulin Aspart 1 vial 11/08/18 07:00 11/10/18 11:09 Novolog Vial Sliding Scale - SQ 4 units TIDAC [facility] Administration Protocol Insulin Detemir 10 units 11/10/18 07:00 11/10/18 06:12 Levemir Vial SQ 10 units AM EL Administration ASSESSMENT/PLAN: IMAGING: * Head CT: neg * Cervical spine CT: No acute fx, compression deformity, subluxation. C5-C6 loss of of disc space height. Mild anterior spondylosis. * CT facial bones: Chronic L nasal fx. No evid of acute fx, opacification of the paranasal sinuses, mastoid air cells or middle ear. * R hip xray: No acute pathology. 68 y/o Upper Sorbian-speaking female w/ DM, HTN pmhx who presented to the ED after an unwitnessed fall. #Unwitnessed Mechanical Fall Pt has vision issues as per her brother. This is why she has an extensive fall hx. - Optho ( Dr. Alfaro) consulted appreciate recs. #? Concussion -Head CT neg - Neuro consult (Dr. Crystal): pt is in a confusional state, doubts concussion , thinks she suffers from dementia but worsened during this admission. Repeat CT scan to r/o a subdural hematoma and B12 pending TSH- 2.78, - Folate pending - Psych consulted: pt does not have the full mental capacity to make decisions for herself at this time. #Hypokalemia -wnl #Prophylaxis -Lovenox 40SQ #FEN -PO hydration -recheck lytes in AM -Sodium-controlled diet Dispo: will d/c once she can be placed in a [facility]. Visit type - Emergency Visit Emergency Visit: Yes ED Registration Date: 11/06/18 Care time: The patient presented to the Emergency Department on the above date and was hospitalized for further evaluation of their emergent condition. - New Patient This patient is new to me today: No - Critical Care Critical Care patient: No - Discharge Referral Referred to [facility] Med P.C.: No ATTENDING PHYSICIAN STATEMENT I saw and evaluated the patient. I reviewed the resident's note and discussed the case with the resident. I agree with the resident's findings and plan as documented. SUBJECTIVE: OBJECTIVE: ASSESSMENT AND PLAN:
--- NOTE | 2018-11-10 17:01 | PN ---
Progress Note (short form) - Note Progress Note: 68 year old female , orginally from [facility] . 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 She has fall and been confused . She is homeless for five months. Patient has ct head is noraml. She could not recall, where she lives. Patient have mild headhace. She denies any other focal neurological symptoms. Patient denies any fever or seizure like activity. There is no new complain, patient has been walking around and denies any headache NEUROLOGICAL EXAMINATION Alert oriented x 1, knows she is at [facility], and could tell her name. neck supple, afebrile passed swallow test eomi, pupils reactive no face asymmetry moving all ext ct head is normal b12,folate tsh is pending Assessment/Plan Confusional state, likely due to dementia Plan : - follow up outpatient no evidence of meningitis, stroke or status epilepticus continue current level of care and placement aricept 5 mg qhs can be added Thanking you so much Zac Hendrickson MD
[2018-11-10] MEDS: DONEPEZIL HCL 5 MG TABLET (FP) PO SCH (17:58)
--- NOTE | 2018-11-10 18:23 | PN ---
Teaching Attending Note Name of Resident: Michael Bone ATTENDING PHYSICIAN STATEMENT I saw and evaluated the patient. I reviewed the resident's note and discussed the case with the resident. I agree with the resident's findings and plan as documented. SUBJECTIVE: Patient is feeling better but slightly confused. OBJECTIVE: Vital Signs Temperature 98.4 F 11/10/18 13:19 Pulse Rate 81 11/10/18 13:19 Respiratory Rate 20 11/10/18 13:19 Blood Pressure 115/58 L 11/10/18 13:19 O2 Sat by Pulse Oximetry (%) 98 11/10/18 09:00 GENERAL: The patient is awake, alert, and disoriented x1 , to time with no acute distress. HEAD: Normal with no signs of trauma. EYES: PERRL, extraocular movements intact, sclera anicteric, conjunctiva clear. ENT: Ears normal, oropharynx clear without exudates, moist mucous membranes. NECK: Trachea midline, full range of motion, supple. LUNGS: Breath sounds equal, clear to auscultation bilaterally, no wheezes, no crackles, no accessory muscle use. HEART: Regular rate and rhythm, S1, S2 without murmur, rub or gallop. ABDOMEN: Soft, nontender, nondistended, normoactive bowel sounds, no guarding, no rebound, no hepatosplenomegaly, no masses. EXTREMITIES: 2+ pulses, warm, well-perfused, no edema. NEUROLOGICAL: Cranial nerves II through XII grossly intact. Normal speech, gait not observed. PSYCH: Normal mood, normal affect. SKIN: Warm, dry, normal turgor, old knee abrasions CBCD WBC 6.8 K/mm3 (4.0-10.0) 11/06/18 03:51 RBC 4.07 M/mm3 (3.60-5.2) 11/06/18 03:51 Hgb 13.2 GM/dL (10.7-15.3) 11/06/18 03:51 Hct 38.0 % (32.4-45.2) 11/06/18 03:51 MCV 93.3 fl (80-96) 11/06/18 03:51 MCHC 34.6 g/dl (32.0-36.0) 11/06/18 03:51 RDW 12.6 % (11.6-15.6) 11/06/18 03:51 Plt Count 257 K/MM3 (134-434) 11/06/18 03:51 MPV 8.0 fl (7.5-11.1) 11/06/18 03:51 CMP Sodium 140 mmol/L (136-145) 11/07/18 06:00 Potassium 3.8 mmol/L (3.5-5.1) 11/07/18 06:00 Chloride 107 mmol/L (98-107) 11/07/18 06:00 Carbon Dioxide 26 mmol/L (21-32) 11/07/18 06:00 Anion Gap 7 MMOL/L (8-16) L 11/07/18 06:00 BUN 8.1 mg/dL (7-18) 11/07/18 06:00 Creatinine 0.6 mg/dL (0.55-1.3) 11/07/18 06:00 Random Glucose 167 mg/dL (74-106) H 11/07/18 06:00 Calcium 8.5 mg/dL (8.5-10.1) 11/07/18 06:00 Total Bilirubin 0.5 mg/dL (0.2-1) 11/06/18 03:51 AST 26 U/L (15-37) 11/06/18 03:51 ALT 27 U/L (13-61) 11/06/18 03:51 Alkaline Phosphatase 140 U/L (45-117) H 11/06/18 03:51 Total Protein 7.1 g/dl (6.4-8.2) 11/06/18 03:51 Albumin 3.7 g/dl (3.4-5.0) 11/06/18 03:51 CARDIAC ENZYMES Troponin I < 0.02 ng/ml (0.00-0.05) 11/06/18 03:51 Current Medications Generic Name Dose Route Start Last Admin Trade Name Freq PRN Reason Stop Dose Admin Donepezil HCl 5 mg 11/10/18 17:15 11/10/18 17:58 Aricept - PO 5 mg DAILY EL Administration Enoxaparin Sodium 40 mg 11/06/18 10:00 11/10/18 09:47 Lovenox - SQ 40 mg DAILY EL Administration Insulin Aspart 1 vial 11/08/18 07:00 11/10/18 16:45 Novolog Vial Sliding Scale - SQ 4 units TIDAC [facility] Administration Protocol Insulin Detemir 10 units 11/10/18 07:00 11/10/18 06:12 Levemir Vial SQ 10 units AM [facility] Administration Home Medications Medication Instructions Recorded Enoxaparin [Lovenox -] 40 mg SQ DAILY disp.syrin 11/09/18 Insulin (Levemir) [Levemir Vial] 10 units SQ AM #0 units 11/09/18 Insulin Sliding Scale [Novolog 1 vial SQ TIDAC units 11/09/18 Vial Sliding Scale -] Microbiology 11/06/18 05:46 Urine - Urine Clean Catch Urine Culture - Final NO GROWTH OBTAINED Head CT- no fx, no acute bleed, posterior falx thickened/calcified, No acute intracranial bleed C spine CT- no fx, mild C5-6 DDD with spondylosis, no subluxation ASSESSMENT AND PLAN: Patient is a 68yo female with no PMHx who presented after a fall. # s/p Mechanical fall with concussion , paTIENT improved. # Moderate dementia. neuro on the case continue Aricept # T2DM on Levemir and SS with coverage # HTN : continue to monitor. DVT Px: Lovenox
[2018-11-11] MEDS: INSULIN (LEVEMIR) 100 UNITS/ML UNITS SQ SCH (06:20)
[2018-11-11] MEDS: INSULIN SLIDING SCALE (NOVOLOG) 1 VIAL SQ SCH ×3 (06:20→16:39)
[2018-11-11] MEDS: DONEPEZIL HCL 5 MG TABLET (FP) PO SCH (10:17)
[2018-11-11] MEDS: ENOXAPARIN NA (PORCINE) 40 MG/0.4 ML DISP.SYRIN SQ SCH (10:17)
--- NOTE | 2018-11-11 18:58 | PN ---
Progress Note (short form) - Note Progress Note: No new changes. Patient is comfortable with no acute distress. Vital Signs Temperature 98.0 F 11/11/18 15:23 Pulse Rate 85 11/11/18 15:23 Respiratory Rate 20 11/11/18 08:45 Blood Pressure 119/71 11/11/18 15:23 O2 Sat by Pulse Oximetry (%) 97 11/11/18 08:45 GENERAL: The patient is awake, alert, and disoriented x1 , to time with no acute distress. HEAD: Normal with no signs of trauma. EYES: PERRL, extraocular movements intact, sclera anicteric, conjunctiva clear. ENT: Ears normal, oropharynx clear without exudates, moist mucous membranes. NECK: Trachea midline, full range of motion, supple. LUNGS: Breath sounds equal, clear to auscultation bilaterally, no wheezes, no crackles, no accessory muscle use. HEART: Regular rate and rhythm, S1, S2 without murmur, rub or gallop. ABDOMEN: Soft, nontender, nondistended, normoactive bowel sounds, no guarding, no rebound, no hepatosplenomegaly, no masses. EXTREMITIES: 2+ pulses, warm, well-perfused, no edema. NEUROLOGICAL: Cranial nerves II through XII grossly intact. Normal speech, gait not observed. PSYCH: Normal mood, normal affect. SKIN: Warm, dry, normal turgor, old knee abrasions CBCD WBC 6.8 K/mm3 (4.0-10.0) 11/06/18 03:51 RBC 4.07 M/mm3 (3.60-5.2) 11/06/18 03:51 Hgb 13.2 GM/dL (10.7-15.3) 11/06/18 03:51 Hct 38.0 % (32.4-45.2) 11/06/18 03:51 MCV 93.3 fl (80-96) 11/06/18 03:51 MCHC 34.6 g/dl (32.0-36.0) 11/06/18 03:51 RDW 12.6 % (11.6-15.6) 11/06/18 03:51 Plt Count 257 K/MM3 (134-434) 11/06/18 03:51 MPV 8.0 fl (7.5-11.1) 11/06/18 03:51 CMP Sodium 140 mmol/L (136-145) 11/07/18 06:00 Potassium 3.8 mmol/L (3.5-5.1) 11/07/18 06:00 Chloride 107 mmol/L (98-107) 11/07/18 06:00 Carbon Dioxide 26 mmol/L (21-32) 11/07/18 06:00 Anion Gap 7 MMOL/L (8-16) L 11/07/18 06:00 BUN 8.1 mg/dL (7-18) 11/07/18 06:00 Creatinine 0.6 mg/dL (0.55-1.3) 11/07/18 06:00 Random Glucose 167 mg/dL (74-106) H 11/07/18 06:00 Calcium 8.5 mg/dL (8.5-10.1) 11/07/18 06:00 Total Bilirubin 0.5 mg/dL (0.2-1) 11/06/18 03:51 AST 26 U/L (15-37) 11/06/18 03:51 ALT 27 U/L (13-61) 11/06/18 03:51 Alkaline Phosphatase 140 U/L (45-117) H 11/06/18 03:51 Total Protein 7.1 g/dl (6.4-8.2) 11/06/18 03:51 Albumin 3.7 g/dl (3.4-5.0) 11/06/18 03:51 CARDIAC ENZYMES Troponin I < 0.02 ng/ml (0.00-0.05) 11/06/18 03:51 Current Medications Generic Name Dose Route Start Last Admin Trade Name Freq PRN Reason Stop Dose Admin Donepezil HCl 5 mg 11/10/18 17:15 11/11/18 10:17 Aricept - PO 5 mg DAILY [facility] Administration Enoxaparin Sodium 40 mg 11/06/18 10:00 11/11/18 10:17 Lovenox - SQ 40 mg DAILY [facility] Administration Insulin Aspart 1 vial 11/08/18 07:00 11/11/18 16:39 Novolog Vial Sliding Scale - SQ 4 units TIDAC [facility] Administration Protocol Insulin Detemir 10 units 11/10/18 07:00 11/11/18 06:20 Levemir Vial SQ 10 units AM [facility] Administration Home Medications Medication Instructions Recorded Enoxaparin [Lovenox -] 40 mg SQ DAILY disp.syrin 11/09/18 Insulin (Levemir) [Levemir Vial] 10 units SQ AM #0 units 11/09/18 Insulin Sliding Scale [Novolog 1 vial SQ TIDAC units 11/09/18 Vial Sliding Scale -] 11/06/18 05:46 Urine - Urine Clean Catch Urine Culture - Final NO GROWTH OBTAINED Head CT- no fx, no acute bleed, posterior falx thickened/calcified, No acute intracranial bleed C spine CT- no fx, mild C5-6 DDD with spondylosis, no subluxation ASSESSMENT AND PLAN: Patient is a 68yo female with no PMHx who presented after a fall. # s/p Mechanical fall with concussion , paTIENT improving. # Moderate dementia. neuro on the case continue Aricept # T2DM on Levemir and SS with coverage # HTN : continue to monitor. DVT Px: Lovenox waiting for approval to go to rehab. Visit type - Emergency Visit Emergency Visit: Yes ED Registration Date: 11/06/18 Care time: The patient presented to the Emergency Department on the above date and was hospitalized for further evaluation of their emergent condition. - New Patient This patient is new to me today: No - Critical Care Critical Care patient: No - Discharge Referral Referred to [facility] Med P.C.: No
[2018-11-12] MEDS: INSULIN (LEVEMIR) 100 UNITS/ML UNITS SQ SCH (06:32)
[2018-11-12] MEDS: INSULIN SLIDING SCALE (NOVOLOG) 1 VIAL SQ SCH ×3 (06:32→16:36)
--- NOTE | 2018-11-12 09:07 | PN ---
Teaching Attending Note Name of Resident: Karen Neri ATTENDING PHYSICIAN STATEMENT I saw and evaluated the patient. I reviewed the resident's note and discussed the case with the resident. I agree with the resident's findings and plan as documented. SUBJECTIVE: Patient is comfortable with no acute distress. patient has no new complains. OBJECTIVE: Vital Signs Temperature 97.6 F 11/11/18 22:00 Pulse Rate 83 11/11/18 22:00 Respiratory Rate 17 11/11/18 22:00 Blood Pressure 133/64 11/11/18 22:00 O2 Sat by Pulse Oximetry (%) 97 11/11/18 21:00 GENERAL: The patient is awake, alert, and disoriented x1 , to time with no acute distress. HEAD: Normal with no signs of trauma. EYES: PERRL, extraocular movements intact, sclera anicteric, conjunctiva clear. ENT: Ears normal, oropharynx clear without exudates, moist mucous membranes. NECK: Trachea midline, full range of motion, supple. LUNGS: Breath sounds equal, clear to auscultation bilaterally, no wheezes, no crackles, no accessory muscle use. HEART: Regular rate and rhythm, S1, S2 without murmur, rub or gallop. ABDOMEN: Soft, nontender, nondistended, normoactive bowel sounds, no guarding, no rebound, no hepatosplenomegaly, no masses. EXTREMITIES: 2+ pulses, warm, well-perfused, no edema. NEUROLOGICAL: Cranial nerves II through XII grossly intact. Normal speech, gait not observed. PSYCH: Normal mood, normal affect. SKIN: Warm, dry, normal turgor, old knee abrasions CBCD WBC 6.8 K/mm3 (4.0-10.0) 11/06/18 03:51 RBC 4.07 M/mm3 (3.60-5.2) 11/06/18 03:51 Hgb 13.2 GM/dL (10.7-15.3) 11/06/18 03:51 Hct 38.0 % (32.4-45.2) 11/06/18 03:51 MCV 93.3 fl (80-96) 11/06/18 03:51 MCHC 34.6 g/dl (32.0-36.0) 11/06/18 03:51 RDW 12.6 % (11.6-15.6) 11/06/18 03:51 Plt Count 257 K/MM3 (134-434) 11/06/18 03:51 MPV 8.0 fl (7.5-11.1) 11/06/18 03:51 CMP Sodium 140 mmol/L (136-145) 11/07/18 06:00 Potassium 3.8 mmol/L (3.5-5.1) 11/07/18 06:00 Chloride 107 mmol/L (98-107) 11/07/18 06:00 Carbon Dioxide 26 mmol/L (21-32) 11/07/18 06:00 Anion Gap 7 MMOL/L (8-16) L 11/07/18 06:00 BUN 8.1 mg/dL (7-18) 11/07/18 06:00 Creatinine 0.6 mg/dL (0.55-1.3) 11/07/18 06:00 Random Glucose 167 mg/dL (74-106) H 11/07/18 06:00 Calcium 8.5 mg/dL (8.5-10.1) 11/07/18 06:00 Total Bilirubin 0.5 mg/dL (0.2-1) 11/06/18 03:51 AST 26 U/L (15-37) 11/06/18 03:51 ALT 27 U/L (13-61) 11/06/18 03:51 Alkaline Phosphatase 140 U/L (45-117) H 11/06/18 03:51 Total Protein 7.1 g/dl (6.4-8.2) 11/06/18 03:51 Albumin 3.7 g/dl (3.4-5.0) 11/06/18 03:51 CARDIAC ENZYMES Troponin I < 0.02 ng/ml (0.00-0.05) 11/06/18 03:51 Current Medications Generic Name Dose Route Start Last Admin Trade Name Freq PRN Reason Stop Dose Admin Donepezil HCl 5 mg 11/10/18 17:15 11/11/18 10:17 Aricept - PO 5 mg DAILY [facility] Administration Enoxaparin Sodium 40 mg 11/06/18 10:00 11/11/18 10:17 Lovenox - SQ 40 mg DAILY [facility] Administration Insulin Aspart 1 vial 11/08/18 07:00 11/12/18 06:32 Novolog Vial Sliding Scale - SQ 2 units TIDAC [facility] Administration Protocol Insulin Detemir 10 units 11/10/18 07:00 11/12/18 06:32 Levemir Vial SQ 10 units AM [facility] Administration ASSESSMENT AND PLAN: Patient is a 68yo female with no PMHx who presented after a fall. # s/p Mechanical fall with concussion , patient is doing better. # Moderate dementia. neuro on the case continue Aricept # T2DM on Levemir and SS with coverage # HTN : continue to monitor. DVT Px: Lovenox waiting for approval to go to rehab.in am
[2018-11-12] MEDS: ENOXAPARIN NA (PORCINE) 40 MG/0.4 ML DISP.SYRIN SQ SCH (09:39)
[2018-11-12] MEDS: DONEPEZIL HCL 5 MG TABLET (FP) PO SCH (09:39)
--- NOTE | 2018-11-12 11:33 | PN ---
Physical Exam: SUBJECTIVE: Patient seen and examined. Ambulating in solarium. Without complaint. OBJECTIVE: Vital Signs Period Temp Pulse Resp BP Sys/Garibay Pulse Ox Last 24 Hr 97.6 F-98.0 F 83-85 17-20 119-133/64-71 97 GENERAL: The patient is awake and alert. in NAD HEAD: Normal with no signs of trauma. +old bruising nasal bridge NECK: Trachea midline, supple. LUNGS: Breath sounds equal, clear to auscultation bilaterally, no wheezes, no crackles, no accessory muscle use. HEART: Regular rate and rhythm, S1, S2 without murmur, rub or gallop. ABDOMEN: Soft, nontender, nondistended, normoactive bowel sounds EXTREMITIES: 2+ pt pulses, warm, well-perfused, no edema. +old knee abrasions NEUROLOGICAL: Cranial nerves II through XII grossly intact. Gait WNL Laboratory Results - last 24 hr 11/11/18 11/11/18 11/12/18 11:21 16:36 06:22 POC Glucometer 232 202 195 ASSESSMENT/PLAN: 68 y/o F with PMH DM2 who presented s/p fall. #s/p fall, concussion -currently w/o complaint -Head CT- no fx, no acute bleed -CT C-spine- no fx, mild C5-6 DDD with spondylosis, no subluxation #Dementia -c/w aricept -seen by neuro, psych #DM2 -c/w levemir 10 u sq AM, ISS, BGM ACHS #F/E/N not requiring IVF continue to follow lytes na controlled diet #PPX DVT: lovenox #Dispo pending rehab placement on Tuesday Visit type - Emergency Visit Emergency Visit: No - New Patient This patient is new to me today: Yes Date on this admission: 11/12/18 - Critical Care Critical Care patient: No
[2018-11-12] MEDS ORDERED: PT OWN MED DRAWER 7, Y5N ONE (17:50)
[2018-11-13 06:11] VITALS: TEMP 98.4
[2018-11-13] MEDS: INSULIN (LEVEMIR) 100 UNITS/ML UNITS SQ SCH (06:23)
[2018-11-13] MEDS: INSULIN SLIDING SCALE (NOVOLOG) 1 VIAL SQ SCH ×3 (06:23→17:20)
[2018-11-13 09:06] VITALS: BP 130/69; PULSE 95
[2018-11-13] MEDS: ENOXAPARIN NA (PORCINE) 40 MG/0.4 ML DISP.SYRIN SQ SCH (09:06)
[2018-11-13] MEDS: DONEPEZIL HCL 5 MG TABLET (FP) PO SCH (09:06)
--- NOTE | 2018-11-13 14:32 | PN ---
Teaching Attending Note Name of Resident: Michael Bone ATTENDING PHYSICIAN STATEMENT I saw and evaluated the patient. I reviewed the resident's note and discussed the case with the resident. I agree with the resident's findings and plan as documented. SUBJECTIVE: Patient has no new complains, no shortness of breath , no nausea or vomiting. OBJECTIVE: Vital Signs Temperature 98.4 F 11/13/18 09:05 Pulse Rate 95 H 11/13/18 09:05 Respiratory Rate 17 11/13/18 09:05 Blood Pressure 130/69 11/13/18 09:05 O2 Sat by Pulse Oximetry (%) 99 11/13/18 09:00 GENERAL: The patient is awake, alert, and disoriented x1 ,to time with no acute distress. HEAD: Normal with no signs of trauma. EYES: PERRL, extraocular movements intact, sclera anicteric, conjunctiva clear. ENT: Ears normal, oropharynx clear without exudates, moist mucous membranes. NECK: Trachea midline, full range of motion, supple. LUNGS: Breath sounds equal, clear to auscultation bilaterally, no wheezes, no crackles, no accessory muscle use. HEART: Regular rate and rhythm, S1, S2 without murmur, rub or gallop. ABDOMEN: Soft, nontender, nondistended, normoactive bowel sounds, no guarding, no rebound, no hepatosplenomegaly, no masses. EXTREMITIES: 2+ pulses, warm, well-perfused, no edema. NEUROLOGICAL: Cranial nerves II through XII grossly intact. Normal speech, gait not observed. PSYCH: Normal mood, normal affect. SKIN: Warm, dry, normal turgor, old knee abrasions CBCD WBC 6.8 K/mm3 (4.0-10.0) 11/06/18 03:51 RBC 4.07 M/mm3 (3.60-5.2) 11/06/18 03:51 Hgb 13.2 GM/dL (10.7-15.3) 11/06/18 03:51 Hct 38.0 % (32.4-45.2) 11/06/18 03:51 MCV 93.3 fl (80-96) 11/06/18 03:51 MCHC 34.6 g/dl (32.0-36.0) 11/06/18 03:51 RDW 12.6 % (11.6-15.6) 11/06/18 03:51 Plt Count 257 K/MM3 (134-434) 11/06/18 03:51 MPV 8.0 fl (7.5-11.1) 11/06/18 03:51 CMP Sodium 140 mmol/L (136-145) 11/07/18 06:00 Potassium 3.8 mmol/L (3.5-5.1) 11/07/18 06:00 Chloride 107 mmol/L (98-107) 11/07/18 06:00 Carbon Dioxide 26 mmol/L (21-32) 11/07/18 06:00 Anion Gap 7 MMOL/L (8-16) L 11/07/18 06:00 BUN 8.1 mg/dL (7-18) 11/07/18 06:00 Creatinine 0.6 mg/dL (0.55-1.3) 11/07/18 06:00 Random Glucose 167 mg/dL (74-106) H 11/07/18 06:00 Calcium 8.5 mg/dL (8.5-10.1) 11/07/18 06:00 Total Bilirubin 0.5 mg/dL (0.2-1) 11/06/18 03:51 AST 26 U/L (15-37) 11/06/18 03:51 ALT 27 U/L (13-61) 11/06/18 03:51 Alkaline Phosphatase 140 U/L (45-117) H 11/06/18 03:51 Total Protein 7.1 g/dl (6.4-8.2) 11/06/18 03:51 Albumin 3.7 g/dl (3.4-5.0) 11/06/18 03:51 CARDIAC ENZYMES Troponin I < 0.02 ng/ml (0.00-0.05) 11/06/18 03:51 Current Medications Generic Name Dose Route Start Last Admin Trade Name Kirillq PRN Reason Stop Dose Admin Donepezil HCl 5 mg 11/10/18 17:15 11/13/18 09:06 Aricept - PO 5 mg DAILY [facility] Administration Enoxaparin Sodium 40 mg 11/06/18 10:00 11/13/18 09:06 Lovenox - SQ 40 mg DAILY [facility] Administration Insulin Aspart 1 vial 11/08/18 07:00 11/13/18 12:22 Novolog Vial Sliding Scale - SQ 8 units TIDAC [facility] Administration Protocol Insulin Detemir 15 units 11/14/18 07:00 Levemir Vial SQ AM [facility] Home Medications Medication Instructions Recorded Enoxaparin [Lovenox -] 40 mg SQ DAILY disp.syrin 11/09/18 Insulin Sliding Scale [Novolog 1 vial SQ TIDAC units 11/09/18 Vial Sliding Scale -] Donepezil HCl [Aricept -] 5 mg PO DAILY tablet 11/13/18 Insulin (Levemir) [Levemir Vial] 15 units SQ AM units 11/13/18 ASSESSMENT AND PLAN: Patient is a 68yo female with no PMHx who presented after a fall. # s/p Mechanical fall with concussion ,patient is doing better. being discharged to rehab. Regen. # Moderate dementia, neuro on the case dr. Hendrickson continue Aricept # T2DM on Levemir and SS with coverage, increased the morning dose to 15 units # HTN : stable DVT Px: Lovenox Patient is goign to rehab,
[2018-11-14] MEDS ORDERED: INSULIN (LEVEMIR) 100 UNITS/ML UNITS SQ SCH (07:00)
== END 2018-11-13 17:36 | DRG 884 ==
LOC: JER 02:27 → JERBED 07:54 → J6S 10:37
PROVIDERS: ADMIT Internal Medicine; ATTEND Internal Medicine
DX: F03.90 Unspecified dementia, unspecified severity, without behavioral disturbance, psychotic disturbance, mood disturbance, and anxiety (principal); S06.0X9A Concussion with loss of consciousness of unspecified duration, initial encounter; E87.6 Hypokalemia; E11.9 Type 2 diabetes mellitus without complications; Z59.0 Homelessness; I10 Essential (primary) hypertension; W19.XXXA Unspecified fall, initial encounter; Y93.89 Activity, other specified; Y92.89 Other specified places as the place of occurrence of the external cause; Y99.8 Other external cause status; E66.9 Obesity, unspecified; Z68.26 Body mass index [BMI] 26.0-26.9, adult
CPT/HCPCS: 36415; 70450-TC; 70486-TC; 71045-TC-FY; 72125-TC; 73523-TC-FY; 80048; 80053; 80307; 81003; 82607; 82746; 82962; 83036; 84443; 84484; 85025; 85610; 86850; 86900; 86901; 87086; 93005; 93010; 93306-TC; 97116-GP; 97161-GP; 99285-25; J7030

== ENCOUNTER 2022-04-10 18:59 | Inpatient (IN) | payer OTHER ==
[2022-04-10 19:17] VITALS: BMI 23.4
[2022-04-10] MEDS ORDERED: SODIUM CHLORIDE 0.9% 500 ML INFUS.BAG IV ONE ×3 (19:24→22:22)
[2022-04-10] MEDS ORDERED: DEXAMETHASONE SOD PHOSPHATE 10 MG/1 ML VIAL IVPUSH ONE (19:24)
[2022-04-10] MEDS ORDERED: ACETAMINOPHEN 1000 MG/100 ML BAG IVPB ONE (19:35)
[2022-04-10] MEDS ORDERED: REMDESIVIR 200 MG in SODIUM CHLORIDE 250 ML IVPB ONE (19:40)
[2022-04-10 20:13] LABS: INR 1.21 (0.83-1.09)
[2022-04-10 20:15] LABS: ACTIVATED PTT 30.1 SECONDS (25.2-36.5)
[2022-04-10 20:17] LABS: HEMATOCRIT 38.4 % (32.4-45.2); HEMOGLOBIN 12.5 GM/dL (10.7-15.3); MCH 30.2 pg (25.7-33.7); MCHC 32.5 g/dl (32.0-36.0); MEAN CELL VOLUME 92.9 fl (80-96); MEAN PLT VOLUME 7.8 fl (7.5-11.1); PLATELET COUNT 178 10^3/uL (134-434); RBC 4.14 M/mm3 (3.60-5.2); RDW 13.5 % (11.6-15.6); WHITE BLOOD COUNT 14.8 K/mm3 (4.0-10.0)
[2022-04-10 20:24] LABS: CHLORIDE 103 mmol/L (98-107); SODIUM 138 mmol/L (136-145)
[2022-04-10 20:26] LABS: CALCIUM 8.9 mg/dL (8.5-10.1)
[2022-04-10 20:27] LABS: ALBUMIN 3.8 g/dl (3.4-5.0); ANION GAP 13 MMOL/L (8-16); BLOOD UREA NITROGEN 16.6 mg/dL (7-18); CO2 23 mmol/L (21-32); GLUCOSE,RANDOM 242 mg/dL (74-106); MAGNESIUM 1.7 mg/dL (1.8-2.4)
[2022-04-10 20:30] LABS: CREATININE 0.8 mg/dL (0.55-1.3); PHOSPHOROUS 3.2 mg/dL (2.5-4.9); SGOT/AST 30 U/L (15-37); SGPT/ALT 26 U/L (13-61)
[2022-04-10 20:31] LABS: BILIRUBIN,TOTAL 0.5 mg/dL (0.2-1); TOT PROT 7.1 g/dl (6.4-8.2)
[2022-04-10 20:33] LABS: ALK PHOS 82 U/L (45-117)
[2022-04-10 20:35] LABS: N-TERMINAL BNP 475.2 pg/ml (5-125)
[2022-04-10] MEDS ORDERED: VANCOMYCIN 1 GM in D5W (PRE-DOCKED) 1,000 MG/250 ML IVPB ONE (20:38)
[2022-04-10] MEDS ORDERED: PIPERACILLIN/TAZOB 4.5 GM 4.5 GM in DEXTROSE 5%-WATER 100 ML IVPB ONE (20:38)
[2022-04-10] MEDS ORDERED: DEXAMETHASONE SOD PHOSPHATE 10 MG/1 ML VIAL ONE (20:45)
[2022-04-10] MEDS ORDERED: PIPERACILLIN/TAZOB 4.5 GM 4.5 GM/100 ML BAG IVPB ONE (20:45)
[2022-04-10] MEDS ORDERED: ALBUTEROL SO4 2.5/IPRATROPIUM 0.5 INH SOL 3 ML VIAL.NEB. NEB ONE ×2 (20:45→21:51)
[2022-04-10] MEDS ORDERED: ACETAMINOPHEN INJECTION 100 ML IVPB ONE (20:45)
[2022-04-10 20:55] LABS: ANISOCYTOSIS 0; MACROCYTOSIS 0
[2022-04-10 20:57] LABS: LACTIC ACID 2.4 mmol/L (0.4-2.0)
[2022-04-10] MEDS: ALBUTEROL SO4 2.5/IPRATROPIUM 0.5 INH SOL 3 ML VIAL.NEB. NEB SCH ×3 (21:00→22:19)
[2022-04-10] MEDS ORDERED: MAGNESIUM SULF 50% (8.12 MEQ/2 ML-1 GM VIAL) IVPB ONE (21:03)
[2022-04-10 21:30] LABS: VENOUS BASE EXCESS -2.4 mmol/L (-2-2); VENOUS O2 SATURATION 95.2 % (70-80); VENOUS PCO2 46.1 mmHg (38-52); VENOUS PH 7.33 (7.310-7.410)
[2022-04-10 21:44] LABS: EPI CELLS 2 /uL (0-25.1); HYALINE CASTS 0 /uL (0-3.1); PH,URINE 5.5 (5.0-8.0); URINE APPEARANCE CLEAR; URINE BACTERIA 11 /uL (0-1359); URINE BILIRUBIN NEGATIVE (NEGATIVE); URINE COLOR YELLOW; URINE GLUCOSE (UA) NEGATIVE (NEGATIVE); URINE KETONE 1+ (NEGATIVE); URINE LEUK ESTERASE TRACE (NEGATIVE); URINE NITRITE NEGATIVE (NEGATIVE); URINE PROTEIN 1+ (NEGATIVE); URINE RBC 105 /uL (0-23.9); URINE UROBILINOGEN 0.2 mg/dL (0.2-1.0); URINE WBC 9 /uL (0-25.8)
[2022-04-10] MEDS ORDERED: VANCOMYCIN/WATER FOR INJ (PEG) 1,000 MG/200 ML BAG IVPB ONE (21:51)
[2022-04-10] MEDS ORDERED: LACTATED RINGERS SOLUTION 1000 ML INFUS.BAG IV ONE ×2 (22:42→23:44)
[2022-04-10 23:40] LABS: LACTIC ACID 5.4 mmol/L (0.4-2.0)
[2022-04-10] MEDS ORDERED: ASPIRIN 81 MG CHEWABLE TABLETS PO ONE (23:45)
[2022-04-11] MEDS ORDERED: MAGNESIUM SULFATE IN WATER 2 GM/50 ML IVPB IVPB ONE (00:07)
[2022-04-11] MEDS ORDERED: ASPIRIN 325 MG TABLET ONE (00:07)
[2022-04-11] MEDS ORDERED: PIPERACILLIN/TAZOB 4.5 GM 4.5 GM in DEXTROSE 5%-WATER 100 ML IVPB SCH (03:45)
[2022-04-11] MEDS ORDERED: ACETAMINOPHEN 1000 MG/100 ML BAG IVPB PRN (03:45)
[2022-04-11] MEDS ORDERED: MELATONIN 5 MG TABLETS PO PRN (05:04)
[2022-04-11 06:20] LABS: HEMATOCRIT 37.2 % (32.4-45.2); HEMOGLOBIN 12.2 GM/dL (10.7-15.3); MCH 30.6 pg (25.7-33.7); MCHC 32.8 g/dl (32.0-36.0); MEAN CELL VOLUME 93.3 fl (80-96); MEAN PLT VOLUME 7.5 fl (7.5-11.1); PLATELET COUNT 164 10^3/uL (134-434); RBC 3.99 M/mm3 (3.60-5.2); RDW 13.4 % (11.6-15.6); WHITE BLOOD COUNT 11.3 K/mm3 (4.0-10.0)
[2022-04-11 06:40] LABS: CALCIUM 8.3 mg/dL (8.5-10.1)
[2022-04-11 06:42] LABS: ALBUMIN 3.3 g/dl (3.4-5.0)
[2022-04-11 06:44] LABS: CREATININE 0.7 mg/dL (0.55-1.3)
[2022-04-11 06:46] LABS: TOT PROT 6.7 g/dl (6.4-8.2)
[2022-04-11 06:47] LABS: BILIRUBIN,TOTAL 0.5 mg/dL (0.2-1)
[2022-04-11 06:55] LABS: LACTIC ACID 3.9 mmol/L (0.4-2.0)
[2022-04-11] MEDS ORDERED: MEROPENEM 1 GM VIAL (RESTRICTED TO ID) IVPB ONE ×2 (08:19→16:15)
[2022-04-11 08:58] LABS: ANISOCYTOSIS 0; HELMET CELLS 0; HOWELL-JOLLY BODIES 0; MACROCYTOSIS 0; OVALOCYTE 0; ROULEAU 0; SICKELED CELLS 0; TARGET CELLS 0; TEAR DROP CELLS 0; TOXIC GRANULATION 0
[2022-04-11] MEDS: MEROPENEM 1 GM in DEXTROSE 5%-WATER 100 ML IVPB SCH ×2 (09:24→17:00)
[2022-04-11] MEDS ORDERED: ACETAMINOPHEN INJECTION 100 ML IVPB ONE (09:50)
[2022-04-11] MEDS ORDERED: VANCOMYCIN 1,000 MG in DEXTROSE 5%-WATER - 250 ML IVPB SCH (10:00)
[2022-04-11] MEDS: SERTRALINE HCL 50 MG TABLET (FP) PO SCH (10:19)
[2022-04-11] MEDS: POTASSIUM CHLORIDE TABS 10 MEQ TABLET.ER (FP) PO SCH (10:20)
[2022-04-11] MEDS: REMDESIVIR 100 MG in SODIUM CHLORIDE 250 ML IVPB SCH (11:29)
[2022-04-11] MEDS ORDERED: D5-1/2NS+20 MEQ KCL - 20 MEQ/1,000 ML INFUS.BAG IV SCH (11:30)
[2022-04-11] MEDS: DEXAMETHASONE SOD PHOSPHATE 10 MG/1 ML VIAL IVPUSH SCH (13:54)
[2022-04-11] MEDS ORDERED: VANCOMYCIN/WATER FOR INJ (PEG) 1,000 MG/200 ML BAG IVPB ONE ×2 (19:52→20:00)
[2022-04-11] MEDS ORDERED: CEFTRIAXONE 2 GM/100 ML BAG IVPB ONE (19:53)
[2022-04-11] MEDS ORDERED: VANCOMYCIN/WATER FOR INJ (PEG) 1,000 MG/200 ML BAG IVPB SCH (20:00)
[2022-04-11] MEDS: CEFTRIAXONE 2 GM in DEXTROSE 5%-WATER 100 ML IVPB SCH (20:05)
[2022-04-11] MEDS ORDERED: ATORVASTATIN CA 80 MG TABLET (FP) ONE (22:34)
[2022-04-11] MEDS: ATORVASTATIN CA 80 MG TABLET (FP) PO SCH (22:53)
[2022-04-12] MEDS ORDERED: CEFTRIAXONE 2 GM/100 ML BAG IVPB ONE (09:53)
[2022-04-12] MEDS ORDERED: ASPIRIN 81 MG CHEWABLE TABLETS ONE (10:01)
[2022-04-12] MEDS ORDERED: DEXAMETHASONE SOD PHOSPHATE 10 MG/1 ML VIAL ONE (10:01)
[2022-04-12] MEDS ORDERED: SERTRALINE HCL 50 MG TABLET (FP) ONE (10:01)
[2022-04-12] MEDS ORDERED: POTASSIUM CHLORIDE TABS 20 MEQ TABLET.ER (FP) PO ONE (10:01)
[2022-04-12] MEDS: POTASSIUM CHLORIDE TABS 10 MEQ TABLET.ER (FP) PO SCH (10:03)
[2022-04-12] MEDS: CEFTRIAXONE 2 GM in DEXTROSE 5%-WATER 100 ML IVPB SCH (10:03)
[2022-04-12] MEDS: ASPIRIN 81 MG CHEWABLE TABLETS PO SCH (10:03)
[2022-04-12] MEDS: DEXAMETHASONE SOD PHOSPHATE 10 MG/1 ML VIAL IVPUSH SCH (10:07)
[2022-04-12] MEDS: SERTRALINE HCL 50 MG TABLET (FP) PO SCH (10:08)
[2022-04-12] MEDS: REMDESIVIR 100 MG in SODIUM CHLORIDE 250 ML IVPB SCH (10:08)
[2022-04-12] MEDS: MEROPENEM 1 GM in DEXTROSE 5%-WATER 100 ML IVPB SCH ×2 (11:24→12:25)
[2022-04-12] MEDS ORDERED: DEXAMETHASONE SOD PHOSPHATE 4 MG/1 ML VIAL IVPUSH ONE (11:45)
[2022-04-12] MEDS: D5-1/2NS+20 MEQ KCL - 20 MEQ/1,000 ML INFUS.BAG IV SCH (12:24)
[2022-04-12] MEDS ORDERED: DEXAMETHASONE SOD PHOSPHATE 4 MG/1 ML VIAL ONE (12:54)
[2022-04-13 08:01] LABS: BASO % 0.1 % (0-2.0); HEMATOCRIT 37.2 % (32.4-45.2); HEMOGLOBIN 12.3 GM/dL (10.7-15.3); LYMPH % 5.4 % (8-40); MCH 30.4 pg (25.7-33.7); MCHC 33.2 g/dl (32.0-36.0); MEAN CELL VOLUME 91.7 fl (80-96); MONO % 6.2 % (3.8-10.2); NEUT % 88.3 % (42.8-82.8); PLATELET COUNT 243 10^3/uL (134-434); RBC 4.06 M/mm3 (3.60-5.2); RDW 13.5 % (11.6-15.6); WHITE BLOOD COUNT 12.7 K/mm3 (4.0-10.0)
[2022-04-13 08:14] LABS: CALCIUM 8.8 mg/dL (8.5-10.1)
[2022-04-13 08:15] LABS: ALBUMIN 2.8 g/dl (3.4-5.0); BLOOD UREA NITROGEN 22.8 mg/dL (7-18)
[2022-04-13 08:18] LABS: CREATININE 0.5 mg/dL (0.55-1.3)
[2022-04-13 08:19] LABS: TOT PROT 6.1 g/dl (6.4-8.2)
[2022-04-13 08:20] LABS: BILIRUBIN,TOTAL 0.4 mg/dL (0.2-1)
[2022-04-13] MEDS ORDERED: DEXAMETHASONE SOD PHOSPHATE 10 MG/1 ML VIAL ONE (09:16)
[2022-04-13] MEDS ORDERED: ASPIRIN 81 MG CHEWABLE TABLETS ONE (09:16)
[2022-04-13] MEDS ORDERED: POTASSIUM CHLORIDE TABS 20 MEQ TABLET.ER (FP) PO ONE (09:16)
[2022-04-13] MEDS ORDERED: ENOXAPARIN NA (PORCINE) 40 MG/0.4 ML DISP.SYRIN SQ ONE (09:18)
[2022-04-13] MEDS ORDERED: SERTRALINE HCL 50 MG TABLET (FP) ONE (09:53)
[2022-04-13] MEDS: POTASSIUM CHLORIDE TABS 10 MEQ TABLET.ER (FP) PO SCH (10:27)
[2022-04-13] MEDS: DEXAMETHASONE SOD PHOSPHATE 10 MG/1 ML VIAL IVPUSH SCH (10:27)
[2022-04-13] MEDS: REMDESIVIR 100 MG in SODIUM CHLORIDE 250 ML IVPB SCH (10:27)
[2022-04-13] MEDS: CEFTRIAXONE 2 GM in DEXTROSE 5%-WATER 100 ML IVPB SCH (10:27)
[2022-04-13] MEDS: ASPIRIN 81 MG CHEWABLE TABLETS PO SCH (10:27)
[2022-04-13] MEDS: ENOXAPARIN NA (PORCINE) 40 MG/0.4 ML DISP.SYRIN SQ SCH (10:27)
[2022-04-13] MEDS: SERTRALINE HCL 50 MG TABLET (FP) PO SCH (10:27)
[2022-04-13] MEDS: ATORVASTATIN CA 80 MG TABLET (FP) PO SCH ×2 (10:28→22:12)
[2022-04-13] MEDS: D5-1/2NS+20 MEQ KCL - 20 MEQ/1,000 ML INFUS.BAG IV SCH (14:08)
[2022-04-13] MEDS: INSULIN (NOVOLOG) ASPART 100 UNITS/ML 10ML VIAL SQ SCH ×2 (18:32→19:08)
[2022-04-14] MEDS: INSULIN (NOVOLOG) ASPART 100 UNITS/ML 10ML VIAL SQ SCH ×3 (06:45→17:19)
[2022-04-14] MEDS: D5-1/2NS+20 MEQ KCL - 20 MEQ/1,000 ML INFUS.BAG IV SCH ×2 (07:00→17:19)
[2022-04-14] MEDS: SERTRALINE HCL 50 MG TABLET (FP) PO SCH (09:38)
[2022-04-14] MEDS: ASPIRIN 81 MG CHEWABLE TABLETS PO SCH (09:39)
[2022-04-14] MEDS: ENOXAPARIN NA (PORCINE) 40 MG/0.4 ML DISP.SYRIN SQ SCH (09:39)
[2022-04-14] MEDS: POTASSIUM CHLORIDE TABS 10 MEQ TABLET.ER (FP) PO SCH (09:39)
[2022-04-14] MEDS: DEXAMETHASONE SOD PHOSPHATE 10 MG/1 ML VIAL IVPUSH SCH (09:39)
[2022-04-14] MEDS: CEFTRIAXONE 2 GM in DEXTROSE 5%-WATER 100 ML IVPB SCH (09:39)
[2022-04-14] MEDS: REMDESIVIR 100 MG in SODIUM CHLORIDE 250 ML IVPB SCH (09:40)
[2022-04-14] MEDS: ATORVASTATIN CA 80 MG TABLET (FP) PO SCH (21:29)
[2022-04-15] MEDS: INSULIN (NOVOLOG) ASPART 100 UNITS/ML 10ML VIAL SQ SCH ×3 (06:18→17:25)
[2022-04-15] MEDS: ASPIRIN 81 MG CHEWABLE TABLETS PO SCH (10:45)
[2022-04-15] MEDS: POTASSIUM CHLORIDE TABS 10 MEQ TABLET.ER (FP) PO SCH (10:45)
[2022-04-15] MEDS: SERTRALINE HCL 50 MG TABLET (FP) PO SCH (10:45)
[2022-04-15] MEDS: DEXAMETHASONE SOD PHOSPHATE 10 MG/1 ML VIAL IVPUSH SCH (10:45)
[2022-04-15] MEDS: CEFTRIAXONE 2 GM in DEXTROSE 5%-WATER 100 ML IVPB SCH (10:45)
[2022-04-15] MEDS: ENOXAPARIN NA (PORCINE) 40 MG/0.4 ML DISP.SYRIN SQ SCH (10:46)
[2022-04-15] MEDS: D5-1/2NS+20 MEQ KCL - 20 MEQ/1,000 ML INFUS.BAG IV SCH (12:49)
[2022-04-15] MEDS ORDERED: LORazepam 2 MG/ML SDV VIAL IVPUSH PRN (13:38)
[2022-04-15] MEDS: ATORVASTATIN CA 80 MG TABLET (FP) PO SCH (21:18)
[2022-04-16 06:09] VITALS: PULSE 82
[2022-04-16] MEDS: INSULIN (NOVOLOG) ASPART 100 UNITS/ML 10ML VIAL SQ SCH ×2 (06:34→11:38)
[2022-04-16] MEDS: DEXAMETHASONE SOD PHOSPHATE 10 MG/1 ML VIAL IVPUSH SCH (10:19)
[2022-04-16] MEDS: SERTRALINE HCL 50 MG TABLET (FP) PO SCH (10:19)
[2022-04-16] MEDS: POTASSIUM CHLORIDE TABS 10 MEQ TABLET.ER (FP) PO SCH (10:19)
[2022-04-16] MEDS: ENOXAPARIN NA (PORCINE) 40 MG/0.4 ML DISP.SYRIN SQ SCH (10:19)
[2022-04-16] MEDS: ASPIRIN 81 MG CHEWABLE TABLETS PO SCH (10:19)
[2022-04-16] MEDS: CEFTRIAXONE 2 GM in DEXTROSE 5%-WATER 100 ML IVPB SCH (10:20)
[2022-04-16 11:52] VITALS: BP 149/81; RESP 22; TEMP 98.2
== END 2022-04-16 14:21 | DRG 871 ==
LOC: JER 18:59 → JERBED 19:32 → J4W 04-13 20:23
PROVIDERS: ADMIT Internal Medicine; ATTEND Internal Medicine
PROC: XW033E5 Introduction of Remdesivir Anti-infective into Peripheral Vein, Percutaneous Approach, New Technology Group 5 (ICD-10-PCS; principal; 2022-04-10)
DX: A41.89 Other specified sepsis (principal); G92.8 Other toxic encephalopathy; J12.82 Pneumonia due to coronavirus disease 2019; J96.01 Acute respiratory failure with hypoxia; U07.1 COVID-19; I24.8 Other forms of acute ischemic heart disease; E87.20 Acidosis, unspecified; R65.20 Severe sepsis without septic shock; E03.9 Hypothyroidism, unspecified; F03.90 Unspecified dementia, unspecified severity, without behavioral disturbance, psychotic disturbance, mood disturbance, and anxiety; E78.5 Hyperlipidemia, unspecified; I25.10 Atherosclerotic heart disease of native coronary artery without angina pectoris
CPT/HCPCS: 0241U-QW; 36415; 71045-TC-FY; 80053; 80061; 81003; 82803; 82962; 83605; 83615; 83735; 83880; 84100; 84484; 85025; 85379; 85610; 85730; 86140; 86850; 86900; 86901; 87040; 87086; 87186; 87899; 93005; 93010; 99285-25; C9399; J1100

== ENCOUNTER 2024-06-22 15:01 | Emergency (ER) | payer OTHER ==
[2024-06-22 15:05] VITALS: BMI 27.3
[2024-06-22 16:33] LABS: BASO % 0.4 % (0-2.0); EOS % 1.2 % (0-4.5); HEMATOCRIT 35.2 % (32.4-45.2); HEMOGLOBIN 11.9 GM/dL (10.7-15.3); LYMPH % 18.9 % (8-40); MCH 31.1 pg (25.7-33.7); MCHC 33.7 g/dl (32.0-36.0); MEAN CELL VOLUME 92.3 fl (80-96); MEAN PLT VOLUME 7.7 fl (7.5-11.1); MONO % 5.6 % (3.8-10.2); NEUT % 73.9 % (42.8-82.8); PLATELET COUNT 217 10^3/uL (134-434); RBC 3.82 M/mm3 (3.60-5.2); RDW 14.2 % (11.6-15.6); WHITE BLOOD COUNT 8.7 K/mm3 (4.0-10.0)
[2024-06-22 16:41] LABS: INR 1.07 (0.83-1.09); PROTHROMBIN TIME (PATIENT) 11.8 SEC (9.7-13.0)
[2024-06-22 16:44] LABS: ACTIVATED PTT 26.7 SECONDS (25.2-36.5)
[2024-06-22 16:53] LABS: EPI CELLS 30 /uL (0-25.1); HYALINE CASTS 13 /uL (0-3.1); PH,URINE 5.5 (5.0-8.0); URINE APPEARANCE CLEAR; URINE BACTERIA 27 /uL (0-1359); URINE BILIRUBIN NEGATIVE (NEGATIVE); URINE COLOR YELLOW; URINE GLUCOSE (UA) NEGATIVE (NEGATIVE); URINE KETONE TRACE (NEGATIVE); URINE LEUK ESTERASE TRACE (NEGATIVE); URINE NITRITE NEGATIVE (NEGATIVE); URINE PROTEIN TRACE (NEGATIVE); URINE RBC 27 /uL (0-23.9); URINE WBC 92 /uL (0-25.8)
[2024-06-22 17:00] LABS: POTASSIUM 3.9 mmol/L (3.5-5.1)
[2024-06-22 17:02] LABS: CALCIUM 9.1 mg/dL (8.5-10.1)
[2024-06-22 17:04] LABS: ALBUMIN 3.3 g/dl (3.4-5.0); BLOOD UREA NITROGEN 22.6 mg/dL (7-18); MAGNESIUM 2.1 mg/dL (1.8-2.4)
[2024-06-22 17:06] LABS: CREATININE 0.7 mg/dL (0.55-1.3); PHOSPHOROUS 3.6 mg/dL (2.5-4.9)
[2024-06-22 17:07] LABS: BILIRUBIN,TOTAL 0.4 mg/dL (0.2-1); TOT PROT 6.6 g/dl (6.4-8.2)
[2024-06-23 02:05] VITALS: PULSE 71; RESP 16; TEMP 97.8
[2024-06-23 03:51] LABS: URINE CRYSTALS MODERATE /hpf
[2024-06-23 04:26] VITALS: BP 162/74
== END 2024-06-23 04:27 ==
LOC: JER 15:01
DX: R41.82 Altered mental status, unspecified (principal); R47.01 Aphasia; R10.12 Left upper quadrant pain
CPT/HCPCS: 0241U-QW; 36415; 70450-TC; 71045-TC-FY; 71275-TC; 80053; 81003; 82962; 83690; 83735; 84100; 84484; 85025; 85610; 85730; 86850; 86900; 86901; 87086; 93005; 93010; 99285-25; Q9967